=== PATIENT | male | born 1960 | race Caucasian/White ===

== ENCOUNTER 2020-03-09 23:07 | Inpatient (IN) | payer BC, SELFPAY ==
[~2020-03-09] VITALS: Ht 180.3 cm; Wt 90.3 kg
[2020-03-09 23:07] VITALS: BP_SYST 110
--- NOTE | 2020-03-09 23:50 | NUR ---
Patient to ER bed 6 to gown for evaluation. Side rails up.
--- NOTE | 2020-03-09 23:50 | NUR ---
Patient BIB EMS. C/O Generalized weakness and fever x today. Per family reported, patient discharged from [facility] yesterday. Dx Septic Shock, Hx HIV, HTN, Nose infection A/O,X4, nose wound , right forearm stitches -biopsy, Oxygen sat 87 %RA, BP 109/62, nose pain, pain rate 8/10, place patient on environmental monitoring specialist.
[2020-03-10] VITALS (21 sets, daily range): BP systolic 94–125
--- NOTE | 2020-03-10 00:24 | NUR ---
ER Dr. Gilbert at bedside examining patient.
[2020-03-10] MEDS ORDERED: LIP20 PO (00:25)
--- NOTE | 2020-03-10 00:57 | NUR ---
Blood for labwork drawn from feather renovator. Patient tolerated well.
[2020-03-10 01:05] LABS: BASOPHILS % (AUTO) 0.2 % (0.0-2.0); EOSINOPHILS % (AUTO) 0.3 % (0.0-4.0); LYMPHOCYTES # (AUTO) 0.5 K/uL (1.0-5.5); RED BLOOD CELL COUNT(AUTO) 2.53 MIL/uL (4.2-6.2)
[2020-03-10 01:10] LABS: CALCIUM 8.4 mg/dL (8.4-11.0); CREATININE 1.38 mg/dL (0.55-1.30); POTASSIUM 4.2 mmol/L (3.5-5.1)
[2020-03-10 01:11] LABS: HEMOGLOBIN 7.2 g/dL (14.0-18.0); LYMPHOCYTES % (AUTO) 9.8 % (20.5-51.5); MEAN CORPUSCULAR HEMOGLOBIN 28 pg (27-31); MEAN CORPUSCULAR HGB CONC 34 % (32-36); MEAN CORPUSCULAR VOLUME 84 fL (79.0-98.0); MONOCYTES # (AUTO) 0.5 K/uL (0.0-1.0); MONOCYTES % (AUTO) 10.7 % (1.7-9.3); RED CELL DISTRIBUTION WIDTH 15.2 % (9.0-15.0); WHITE BLOOD COUNT (AUTO) 5.1 K/uL (4.8-10.8)
[2020-03-10 01:14] LABS: ALBUMIN 1.2 g/dL (3.4-4.8); INR 1.5 (0.80-1.20); PROTHROMBIN TIME 14.8 SECS (9.5-12.5); TOTAL BILIRUBIN 1.1 mg/dL (0.0-1.0)
[2020-03-10 01:25] LABS: HEMATOCRIT 21.2 % (36-54); PLATELET COUNT (AUTO) 76 K/uL (130-430)
[2020-03-10 01:38] LABS: C-REACTIVE PROTEIN QUANT 19.8 mg/dL (0-0.5)
[2020-03-10] MEDS ORDERED: PRO40 PO (01:43)
[2020-03-10] MEDS ORDERED: DIF100 PO (01:43)
[2020-03-10] MEDS ORDERED: METO200T49 PO (01:44)
[2020-03-10] MEDS ORDERED: cefTRIAXone 1 GM IVPB PREMIX 50 ML IV ONE (01:45)
[2020-03-10] MEDS ORDERED: NACL 0.9% 1,000 ML IV ONE (01:45)
[2020-03-10] MEDS ORDERED: FAMC500T18 PO (01:47)
[2020-03-10] MEDS ORDERED: AMOX250C PO (01:48)
[2020-03-10] MEDS ORDERED: MUPI1OIN5 TP (01:50)
--- NOTE | 2020-03-10 01:52 | NUR ---
Medication reconciliation completed with information provided by family. Any prior medication reconciliation on file was reviewed and corrected.
--- NOTE | 2020-03-10 02:02 | NUR ---
Swabbed Covid-19 as protocol and sent to lab.
[2020-03-10] MEDS ORDERED: AZITHROMYCIN 500 MG/VIAL (ZITHROMAX) IV ONE ×2 (02:16→04:20)
[2020-03-10] MEDS ORDERED: NOREPINEPHRINE BITARTRATE 4 MG in NS 246 ML IV PRN (02:30)
[2020-03-10] MEDS ORDERED: CLINDAMYCIN 900 mg/50mL D5W 50 ML IV ONE (02:30)
[2020-03-10] MEDS ORDERED: NOREPINEPHRINE 4 MG/4 ML VIAL IV ONE (02:38)
--- NOTE | 2020-03-10 02:45 | NUR ---
Spoke with patient and informed - patient will stay in hospital. Patient states " I will call my family myself, I want to keep my information to be private."
--- NOTE | 2020-03-10 02:57 | NUR ---
# 22 gauge angiocath placed to right hand. Use of asceptic technique. Opsite placed over site. Blood return noted. Blood for lab drawn from site. Flushed with 10 cc of normal saline. No evidence of infiltration noted. Patient tolerated well.
[2020-03-10] MEDS: AZITHROMYCIN 500 MG in NS 250 ML IV ONE ×2 (03:09→05:15)
--- NOTE | 2020-03-10 03:16 | NUR ---
Transfer to ICU via ACLS protocol. Licensed nurse present. IV present no signs or symptoms of infiltration.
--- NOTE | 2020-03-10 03:16 | NUR ---
Patient will be admitted to care of Dr. Hawkins. Admitted to ICU unit. Will go to room 8. Belongings list completed. Complete and up to date summary report printed. SBAR report to be given at bedside with opportunity for questions.
--- NOTE | 2020-03-10 03:21 | NUR ---
Note alex in ED - 03/10/20 at 0417 by [email or web address] Transfer to ICU via ACLS protocol. Licensed nurse present. IV present no signs or symptoms of infiltration.
--- NOTE | 2020-03-10 03:30 | NUR ---
ADMISSION NOTE Received patient from ER via gurney. Patient admitted with diagnosis of sepsis. Patient is awake, alert, oriented X 4. Patient oriented to hospital room, call light, toileting, pain management and safety-teach back done. Personal belongings checked and Belongings List documented. Call light within reach.
[2020-03-10] MEDS ORDERED: PIPERACILLIN/TAZO 3.375/DEX-IS 50 ML IV ONE (04:15)
[2020-03-10] MEDS: AZITHROMYCIN 500 MG in NS 250 ML IV SCH (04:30)
[2020-03-10] MEDS ORDERED: PIPERACILLIN/TAZO 4.5GM/DEX-IS 100 ML IV ONE ×2 (05:00→11:00)
[2020-03-10] MEDS: NACL 0.9% 1,000 ML IV SCH ×3 (05:21→20:29)
--- NOTE | 2020-03-10 06:09 | NUR ---
CONSULT PAGED DR. MENDOZA FOR PATIENT SHIELA TARUN FOR SEPSIS. DOCTOR CALLED BACK AND NURSE GAVE CONSULT INFORMATION. PAGED DOCTOR AT [phone]. DOCTOR CARINA PUT IN THE CONSULT.
--- NOTE | 2020-03-10 06:18 | NUR ---
CONSULT REASON FOR CONSULT: SEPSIS PERSON I SPOKE WITH: SOCORRO CONSULTING PHYSICIAN: DR. SIMMONS [phone] CONSULTING SPECIALTY: INFECTION DISEASE ORDERING PHYSICIAN: DR. LIM
--- NOTE | 2020-03-10 07:27 | NUR ---
Closing Note: Endorsed SBAR report to oncoming RN for continuity of care.
[2020-03-10] MEDS ORDERED: FAMCICLOVIR 250 MG PO SCH (09:00)
[2020-03-10] MEDS: PANTOPRAZOLE SODIUM 40 MG/VIAL (PROTONIX) IVP SCH (09:27)
[2020-03-10] MEDS: ATORVASTATIN 20 MG TABLET PO SCH (09:27)
[2020-03-10] MEDS: FLUCONAZOLE 100 MG TABLET (DIFLUCAN) PO SCH (09:27)
--- NOTE | 2020-03-10 09:47 | NUR ---
Nutrition Update Marcellus scale 14 noted. Pt admitted for sepsis. Diet: NPO BMI: 24.3 kg/m2 RD to follow per nutrition care standards.
[2020-03-10 11:03] LABS: BASOPHILS % (AUTO) 0.3 % (0.0-2.0); EOSINOPHILS % (AUTO) 0.3 % (0.0-4.0); HEMATOCRIT 26.2 % (36-54); HEMOGLOBIN 8.6 g/dL (14.0-18.0); LYMPHOCYTES # (AUTO) 0.5 K/uL (1.0-5.5); LYMPHOCYTES % (AUTO) 11.7 % (20.5-51.5); MEAN CORPUSCULAR HEMOGLOBIN 28 pg (27-31); MEAN CORPUSCULAR HGB CONC 33 % (32-36); MEAN CORPUSCULAR VOLUME 84 fL (79.0-98.0); MONOCYTES # (AUTO) 0.4 K/uL (0.0-1.0); MONOCYTES % (AUTO) 9.6 % (1.7-9.3); NEUTROPHILS # (AUTO) 3.5 K/uL (1.8-7.7); NEUTROPHILS % (AUTO) 78.1 % (40.0-70.0); PLATELET COUNT (AUTO) 81 K/uL (130-430); RED BLOOD CELL COUNT(AUTO) 3.12 MIL/uL (4.2-6.2); RED CELL DISTRIBUTION WIDTH 15.7 % (9.0-15.0); WHITE BLOOD COUNT (AUTO) 4.5 K/uL (4.8-10.8)
[2020-03-10 11:15] LABS: INR 1.7 (0.80-1.20)
[2020-03-10 11:35] LABS: CREATININE 1.2 mg/dL (0.55-1.30); POTASSIUM 4.3 mmol/L (3.5-5.1); TOTAL BILIRUBIN 1.5 mg/dL (0.0-1.0)
[2020-03-10 11:36] LABS: ALBUMIN 1.4 g/dL (3.4-4.8)
[2020-03-10 11:39] LABS: C-REACTIVE PROTEIN QUANT 28.8 mg/dL (0-0.5)
--- NOTE | 2020-03-10 16:32 | NUR ---
Shira Terry for orders, spoke with exchange. Addendum: 03/10/20 at 1640 by Prema Riddle RN Dr. Ross tatum, spoke with exchange.
--- NOTE | 2020-03-10 17:21 | NUR ---
pt has paradoxical cough, requests cough medicine and food, gave pt juice and water which pt swallowed easily, pt also states is HIV positive and needs to get meds, 2 mds made aware of this, no orders for cough or HIV meds/pt o2 sat 1005 ON 4L, DECREASED HIS fio2 to 2 liters and bp stable rani turned off levo at 8am/pt follows commands but very weak, admitted last night but improving, spoke to pt daughter and also let her know this, daughter says pt not compliant with hiv txmts but was to see MD in a.m. wednesday to get results of testing done on his facial lesions/pt otherwise in zero distress with no complaints/mds told and paged re transferring pt to floor but no orders as of yet//mw
--- NOTE | 2020-03-10 19:15 | NUR ---
Opening Note Received patient from AM nurse using SBAR approach.
[2020-03-10] MEDS ORDERED: PIPERACILLIN/TAZO 4.5GM/DEX-IS 100 ML IV SCH (19:30)
--- NOTE | 2020-03-10 20:40 | NUR ---
called Dr. Montenegro called. New orders received.
[2020-03-10] MEDS ORDERED: PIPERACILLIN/TAZOBACTAM 4.5 GM/VIAL (ZOSYN) IV ONE (21:36)
[2020-03-10] MEDS: PIPERACILLIN/TAZO 4.5GM/DEX-IS 100 ML IV SCH (21:54)
--- NOTE | 2020-03-10 22:00 | NUR ---
Linens changed Asked to clean patient but he refused. Patient stated that he wanted to sleep and said to clean him later. I was able to change his chucks and make a new bed roll for him and put on a new gown. Patient is sleeping comfortably in bed. No signs or symptoms of distress noted. Will continue to monitor the patient.
[2020-03-11] VITALS (25 sets, daily range): BP systolic 91–131
[2020-03-11] MEDS: NACL 0.9% 1,000 ML IV SCH ×2 (00:35→11:59)
[2020-03-11] MEDS: AZITHROMYCIN 500 MG in NS 250 ML IV SCH (04:16)
--- NOTE | 2020-03-11 05:08 | NUR ---
Patient refused to be cleaned Asked to clean patient but patient stated that he does not want to be cleaned. Offered to change patient's gowns and linens but he said no thank you. Patient stated that he will ask for help when he wants to be changed/cleaned. Will continue to monitor patient.
[2020-03-11] MEDS: PIPERACILLIN/TAZO 4.5GM/DEX-IS 100 ML IV SCH ×3 (05:43→21:08)
--- NOTE | 2020-03-11 06:10 | NUR ---
Refused to be changed Went in the room to do rounds on patient. Checked patient's chucks and they are stained with urine. Asked patient if I can change out the chucks and he refused. I asked if i could change patient's gown and he refused. Patient stated he wants to sleep. Will continue to monitor.
[2020-03-11 07:07] LABS: ALBUMIN 1.1 g/dL (3.4-4.8); CALCIUM 8.4 mg/dL (8.4-11.0); CREATININE 1.1 mg/dL (0.55-1.30); POTASSIUM 4.2 mmol/L (3.5-5.1); TOTAL BILIRUBIN 1.3 mg/dL (0.0-1.0)
--- NOTE | 2020-03-11 07:16 | NUR ---
Closing Note Endorsed report to AM nurse using SBAR approach.
--- NOTE | 2020-03-11 07:30 | NUR ---
Recevied report to assume care. Pt incontinent of stool and urine everywhere. Kelsie care done and linen changed. Pt refuses to put i-watch and 2 cell phones at bedside to the safe. He wants to keep them with him. Requests watch to be on his wrist. Sr on monitor. VSS. 02 2L NC in use with sats 91%. Will continue to monitor pt. Denies pain or SOB. Does complain about wanting something to eat and drink. Informed Dr. Graham.
[2020-03-11 07:34] LABS: BASOPHILS % (AUTO) 0.4 % (0.0-2.0); EOSINOPHILS % (AUTO) 0.2 % (0.0-4.0); HEMOGLOBIN 7.2 g/dL (14.0-18.0); LYMPHOCYTES # (AUTO) 0.4 K/uL (1.0-5.5); LYMPHOCYTES % (AUTO) 10.6 % (20.5-51.5); MEAN CORPUSCULAR HEMOGLOBIN 28 pg (27-31); MEAN CORPUSCULAR HGB CONC 33 % (32-36); MEAN CORPUSCULAR VOLUME 83 fL (79.0-98.0); MONOCYTES # (AUTO) 0.4 K/uL (0.0-1.0); MONOCYTES % (AUTO) 10.3 % (1.7-9.3); NEUTROPHILS # (AUTO) 3.1 K/uL (1.8-7.7); PLATELET COUNT (AUTO) 68 K/uL (130-430); RED BLOOD CELL COUNT(AUTO) 2.59 MIL/uL (4.2-6.2); RED CELL DISTRIBUTION WIDTH 15.2 % (9.0-15.0)
--- NOTE | 2020-03-11 07:47 | NUR ---
Dr. Graham in to see pt. Informed about pts cough and she will leave medicine for it. Informed that pt has not received any fluid boluses for sepsis diagnosis. No orders given for fluids.
[2020-03-11 08:20] LABS: HEMATOCRIT 21.5 % (36-54)
--- NOTE | 2020-03-11 08:30 | NUR ---
Dr Anaya in to see pt. Orders left.
--- NOTE | 2020-03-11 10:00 | NUR ---
Pt took oral meds with water without problems swallowing.
--- NOTE | 2020-03-11 10:24 | NUR ---
IVF NS wide open started per Dr. Anaya.
[2020-03-11] MEDS: FLUCONAZOLE 100 MG TABLET (DIFLUCAN) PO SCH (10:30)
[2020-03-11 11:08] LABS: NEUTROPHILS % (AUTO) 78.5 % (40.0-70.0)
[2020-03-11] MEDS: guaiFENesin 200 MG/CODEINE 20 MG/ 10 ML UDC PO PRN (11:15)
--- NOTE | 2020-03-11 11:32 | NUR ---
SS NOTES: HEAD TENNIS COACH attempted to phone patient's cell; no answer. HEAD TENNIS COACH phoned spouse, Corin @[phone]. Pt is a 59 y/o man who came in via ED for fever and low blood pressure. Per , patient had a pimple starting in October and has been to different MD's and was prescribed with different meds. stated, pt is very private and was not really aware of the severity of his condition. stated, pt is independent with his ADL's and no DME needed. No history of mental health and substance use. also stated, patient prefers not to give and their daughter Shoshana information about his care in the hospital, and they respect that. also stated, information are only to be released to pt's son, Pablo @ [phone]. believes that patient does not have an advanced directive. also stated, that if patient was to be discharged home and requires care, she will not be able to take care of him because she is having a heart surgery tomorrow 03/12, but no preference on SNF or HHS if it's indicated. SS will remain available.
[2020-03-11] MEDS: PANTOPRAZOLE SODIUM 40 MG/VIAL (PROTONIX) IVP SCH (11:59)
[2020-03-11] MEDS: ATORVASTATIN 20 MG TABLET PO SCH (11:59)
--- NOTE | 2020-03-11 12:18 | NUR ---
Dr. Casanova in to see pt. Orders left. Orders for bactroban to be continued and to repeat lactic acid after fluid bolus completed.
--- NOTE | 2020-03-11 13:29 | NUR ---
CONSULT SURGERY CONSULTING MD: DR. MANNING DIALED: [phone] SPOKE TO: DR. MANNING ORDERED BY: DR. JACOBSON
--- NOTE | 2020-03-11 13:31 | NUR ---
CONSULT ONCOLOGY CONSULTING MD: DR. DENTON SPOKE TO: JAMES DIALED: [phone] ORDERED BY: DR. JACOBSON
--- NOTE | 2020-03-11 15:46 | NUR ---
Surgical Consult Spoke with Dr. Rutledge on the phone and question answered. He will be in to do biopsy in 20 minutes. Supply list given.
[2020-03-11] MEDS ORDERED: LIDOCAINE 1% 10 MG/ML, 20 ML MDV INJ ONE (16:00)
--- NOTE | 2020-03-11 16:40 | NUR ---
Dr Rutledge in to see pt. Biopsy done from right leg and sent to the lab. Dressing applied by with sutures in place.
[2020-03-11] MEDS: NS IV SCH ×2 (17:00→22:32)
[2020-03-11] MEDS: ACYCLOVIR IV SCH ×2 (17:00→22:32)
--- NOTE | 2020-03-11 18:00 | NUR ---
Sleeping after biposy taken. VSS. SR on monitor. Will continue to monitor.
--- NOTE | 2020-03-11 19:30 | NUR ---
Report given to oncoming staff to assume care.
[2020-03-11] MEDS: MUPIROCIN 2% TOPICAL OINTMENT 22 GM NS SCH (21:07)
[2020-03-12] VITALS (14 sets, daily range): BP systolic 98–129
[2020-03-12] MEDS: AZITHROMYCIN 500 MG in NS 250 ML IV SCH (04:29)
[2020-03-12] MEDS: PIPERACILLIN/TAZO 4.5GM/DEX-IS 100 ML IV SCH ×3 (05:35→21:12)
[2020-03-12] MEDS: NS IV SCH ×3 (05:35→22:32)
[2020-03-12] MEDS: ACYCLOVIR IV SCH ×3 (05:35→22:32)
--- NOTE | 2020-03-12 06:00 | NUR ---
SLEPT ON AND OFF.DENIES ANY PAIN.WAS INCONTINENT OF URINE X2 THIS SHIFT.WAS ABLE TO USE URINAL , EARLIER IN THE SHIFT. PARTIAL BATH DONE 2X THIS SHIFT WITH LINENS CHANGED.NOTED TO GET DISORIENTED AT TIMES, TALKING NONSENSE AT TIMES.TOLERATING O2 AT 2L/NC.
--- NOTE | 2020-03-12 07:15 | NUR ---
Report received from DIPESH Boles for continuation of care. Patient is resting in bed. He is complaining about his "hotel" experience and states he is unhappy a joke was played on him. He states I should know what the joke is and that he does not want to be here. He wishes to speak with the "hotel" barn and property manager. I oriented him to his location. kitchen hand notified.
[2020-03-12] MEDS: FLUCONAZOLE 100 MG TABLET (DIFLUCAN) PO SCH (08:41)
[2020-03-12] MEDS: ATORVASTATIN 20 MG TABLET PO SCH (08:41)
[2020-03-12] MEDS: PANTOPRAZOLE SODIUM 40 MG/VIAL (PROTONIX) IVP SCH (08:41)
[2020-03-12] MEDS: MUPIROCIN 2% TOPICAL OINTMENT 22 GM NS SCH ×2 (08:41→20:46)
--- NOTE | 2020-03-12 08:45 | NUR ---
Breakfast tray provided.
--- NOTE | 2020-03-12 11:00 | NUR ---
Patient to be transferred to telemetry. No beds available at this time.
--- NOTE | 2020-03-12 12:15 | NUR ---
Patient removed gown, SCDs, and all monitoring devices.
--- NOTE | 2020-03-12 12:15 | NUR ---
Patient removed his gown and all monitoring devices.
--- NOTE | 2020-03-12 12:30 | NUR ---
Lunch tray provided.
[2020-03-12] MEDS: NACL 0.9% 1,000 ML IV SCH ×3 (12:54→23:19)
--- NOTE | 2020-03-12 13:28 | NUR ---
Dietitian Recommendations *Recommend: adding ONS Ensure Enlive TID and Vernon BID. ONS and modular will provide additional 1210 kcal, 65gm protein daily. *Recommend MVI. *Continue Cardiac diet per MD orders. Please see Nutritional Assessment for details. BLAKE ABRAHAM
--- NOTE | 2020-03-12 15:45 | NUR ---
PT TRANSFERRED Report given to DIPESH Carrillo in telemetry. Patient transferred to [facility] via ACLS protocol, 2 RNs present. PICC line patent.
--- NOTE | 2020-03-12 16:38 | NUR ---
ADMISSION TO [facility] The patient, TARUN BENJAMIN, 59 y/o, M admitted by MARIA TERESA JACOBSON MD, was given written information regarding hospital policies, unit procedures and contact persons. Received report from ICU for continuity of care.
--- NOTE | 2020-03-12 16:39 | NUR ---
Opening Notes Received patient from ICU, stable at this time. No resp distress noted. Breathing is even and unlabored. Patient is noted with continuous oxygen @ 2 LPM via NC, tolerated well. Saturating 94%-96%. Patient denies any pain at this time. IV site on left FA, 22 gauge, intact but not in use. PICC line on TANIA, dressing noted with some blood, 2 lumens, flushing well, blood return noted. NS @ 30 ml/hr, infusing well. Patient was noted with multiple skin issues: wound on anterior nose, redness on coccyx area, bruising noted on right 4th toe, lesions on right arm. Patient denies any NVD at this time. Patient was educated on proper use of the call light-teach back successful. Nurse assisted patient to use the urinal at bedside. Patient is also noted with delusions. Patient believes he is staying in a hotel. Patient also believes the last nurse who helped him was his ex . Patient was reoriented. All needs met at this time. Safety and fall precautions in place. Call light within reach. Bed in lowest position, alarm on, locked. Will continue to monitor.
--- NOTE | 2020-03-12 19:14 | NUR ---
Closing Notes Patient is awake, alert and oriented x3. Patient is noted with intermittent confusion and delusions/hallucinations. NO resp distress noted at this time. Breathing is even and unlabored. Patient was repositioned with pillows, left clean and dry. Patient is able to help with turning over in bed. Patient denies any pain at this time. All needs met at this time. Call light within reach. Bed in lowest position, alarm on, locked. Will continue to monitor.
--- NOTE | 2020-03-12 19:20 | NUR ---
OPENING NOTE PATIENT AWAKE AND WATCHING TV. PATIENT AOX3. NO SIGNS OF RESPIRATORY DISTRESS NOTED. DENIES PAIN AND DISCOMFORT. ON2L OF OXYGEN VIA NASAL CANULA, O2 SATURATION OF 95%. IVF INFUSING WELL, PATENCY NOTED ON THE RIGHT UPPER ARM PICC LINE, NO INFILTRATION NOTED. COUGHING IS NOTED. AND PATIENT VERBALIZED THE NEED OF COUGH MEDICATION LATER. WILL ADMINISTER. SCD'S OPERATING WELL. BED LOCKED AND IN LOWEST POSITION. BED ALARM ON. CALL LIGHT WITHIN REACH, PATIENT WAS EDUCATED TO USE CALL LIGHT WHEN ASSISTANCE IS NEEDED, PATIENT VERBALIZED UNDERSTANDING. SAFETY PRECAUTIONS IN PLACE. WILL CONTINUE TO MONITOR PATIENT.
[2020-03-12] MEDS: guaiFENesin 200 MG/CODEINE 20 MG/ 10 ML UDC PO PRN (21:31)
--- NOTE | 2020-03-12 21:31 | NUR ---
MED PASS/ IV ANTIBIOTICS/ REFUSED SKIN ASSESSMENT DUE IV ANTIBIOTIC MEDICATIONS WAS HUNG AT THIS TIME. AND PRN MEDICATION FOR COUGH WAS GIVEN WELL. PATIENT WAS EDUCATED ON MEDICATION AT WAS GIVEN FOR ITS PURPOSE, SIDE EFFECT AND BENEFITS. PATIENT ABLE TO VERBALIZE UNDERSTANDING. PATIENT WAS ASK IF RN CAN DO SKIN ASSESSMENT IN THE BACK AND LEGS, PATIENT REFUSED AT THIS TIME. PATIENT WAS EDUCATED THE PURPOSE AND BENEFITS OF THE ASSESSMENT, PATIENT STILL REFUSED. WILL CONTINUE TO ENCOURAGE PATIENT. SAFETY PRECAUTIONS IN PLACE. NEEDS ATTENDED. WILL CONTINUE TO MONITOR PATIENT.
--- NOTE | 2020-03-12 22:00 | NUR ---
SPOKE WITH MD DR. JACOBSON MADE AWARE OF PATIENTS ELEVATED HEART RATE. MD GAVE AN ORDER TO CALL DR. KELLER. WILL PUT AN ORDER FOR CONSULT. WILL FOLLOW UP TO CALL DR. KELLER
--- NOTE | 2020-03-12 23:19 | NUR ---
NEW IVF HUNG/ VITAL SIGNS PATIENT AWAKE AT THIS TIME. NO SIGNS OF RESPIRATORY DISTRESS AND DISCOMFORT NOTED. BREATHING IS EVEN AND UNLABORED. ON 2L OF OXYGEN VIA NASAL CANULA. O2 SATURATION OF 95%. VITAL SIGNS TAKEN AND RECORDED. IVF INFUSING WELL. CALL LIGHT WITHIN IN REACH. SAFETY PRECAUTIONS IN PLACE. WILL CONTINUE TO MONITOR PATIENT.
--- NOTE | 2020-03-12 23:32 | NUR ---
CONSULTATION PAGED/CALLED Reason for Consultation: ELEVATED HEART RATE Person Who was Notified: SINDHU Consulting Physician: KRISHNA Prototype Machine Operator Specialty: Ordering Physician: INDIRA
[2020-03-13] VITALS: BP_SYST 122
--- NOTE | 2020-03-13 02:27 | NUR ---
RN ROUNDS PATIENT AWAKE AND WATCHING TV, NO SIGNS OF RESPIRATORY DISTRESS AND DISCOMFORT NOTED. BREATHING EVEN AND UNLABORED. ON 2L OF OXYGEN VIA NASAL CANULA, O2 SATURATION OF 95%. DENIES PAIN AND DISCOMFORT AT THIS TIME. CALL LIGHT WITHIN REACH. NEEDS ATTENDED. STILL REFUSED FOR SKIN ASSESSMENT IN THE BACK AND LOWER EXTREMITIES. WILL CONTINUE TO ENCOURAGE THROUGHOUT THE SHIFT. SAFETY PRECAUTIONS IN PLACE. WILL CONTINUE TO MONITOR PATIENT
--- NOTE | 2020-03-13 04:00 | NUR ---
RN ROUNDS PATIENT ASLEEP AT THIS TIME. NO SIGNS OF RESPIRATORY DISTRESS AND DISCOMFORT NOTED. BREATHING EVEN AND UNLABORED. ON 2L OF OXYGEN VIA NASAL CANULA, O2 SATURATION OF 95%. DENIES PAIN AND DISCOMFORT AT THIS TIME. CALL LIGHT WITHIN REACH. SAFETY PRECAUTIONS IN PLACE. WILL CONTINUE TO MONITOR PATIENT
[2020-03-13] MEDS: AZITHROMYCIN 500 MG in NS 250 ML IV SCH (04:40)
[2020-03-13] MEDS: NS IV SCH (06:00)
[2020-03-13] MEDS: ACYCLOVIR IV SCH (06:00)
--- NOTE | 2020-03-13 06:00 | NUR ---
PICC LINE DRESSING/SKIN ASSESSMENT PICC LINE DRESSING WAS CHANGED AT THIS TIME. PATIENT COOPERATED AT THIS TIME. SKIN ASSESSMENT DONE WELL. PICTURES WAS TAKEN. NEEDS ATTENDED. NO SIGNS OF RESPIRATORY DISTRESS AND DISCOMFORT NOTED. WILL CONTINUE TO MONITOR PATIENT
[2020-03-13] MEDS: PIPERACILLIN/TAZO 4.5GM/DEX-IS 100 ML IV SCH (06:02)
--- NOTE | 2020-03-13 07:10 | NUR ---
CLOSING NOTE/ ERICKA CARE PATIENT ASLEEP AT THIS TIME. NO SIGNS OF RESPIRATORY DISTRESS AND DISCOMFORT NOTED. BREATHING EVEN AND UNLABORED. ON 2L OF OXYGEN VIA NASAL CANULA, 02 SATURATION OF 94%. IVF INFUSING WELL, PATENCY NOTED. ERICKA CARE DONE, PATIENT TOLERATED WELL. CALL LIGHT WITHIN REACH. SAFETY PRECAUTIONS IN PLACE. BED ALARM ON. BED LOCKED AND IN LOWEST POSITION. ISOLATION, FALL AND ASPIRATION PRECAUTION MAINTAINED. ALL NEEDS MET THROUGHOUT THE SHIFT. WILL CONTINUE TO MONITOR UNTIL ENDORSE TO ONCOMING SHIFT NURSE FOR CONTINUITY OF CARE.
--- NOTE | 2020-03-13 07:30 | NUR ---
Opening Notes Patient is awake, alert and oriented x3. Patient is intermittently confused and noted with delusions. No resp distress noted. Breathing is even and unlabored. Patient remains on continuous oxygen @ 3 LPM, tolerated well. Patient denies any pain at this time. Patient c/o cough. Dry cough with no sputum at this time. PICC line noted on TANIA, 2 lumens, dressing is clean and dry. Flushing well, blood return noted. NS @ 125 ml/hr, infusing well. Patient was also educated that his COVID 19 test was NEGATIVE. Will page Dr. Casanova to DC isolation precautions. Patient repositioned with pillows, left clean and dry. SCDs in place. Bed in lowest position, alarm on, locked. Will continue to monitor.
[2020-03-13 08:00] VITALS: BP_SYST 110
[2020-03-13] MEDS: guaiFENesin 200 MG/CODEINE 20 MG/ 10 ML UDC PO PRN (08:00)
--- NOTE | 2020-03-13 08:00 | NUR ---
Medication Pass/Cough Medicine All due medications rendered. Patient swallowed medication without difficulty. Patient was also given Robitussin cough medicine, tolerated well. Will continue to monitor.
[2020-03-13] MEDS: PANTOPRAZOLE SODIUM 40 MG/VIAL (PROTONIX) IVP SCH (09:26)
[2020-03-13] MEDS: FLUCONAZOLE 100 MG TABLET (DIFLUCAN) PO SCH (09:27)
[2020-03-13] MEDS: MUPIROCIN 2% TOPICAL OINTMENT 22 GM NS SCH ×2 (09:27→21:00)
[2020-03-13] MEDS: ATORVASTATIN 20 MG TABLET PO SCH (09:27)
--- NOTE | 2020-03-13 09:30 | NUR ---
Transfer to Telemetry Obtained new orders to transfer patient to Telemetry. Patient will go to room 102A. Report will be given to DIPESH Toledo.
--- NOTE | 2020-03-13 09:43 | NUR ---
Report Given to DIPESH Toledo for continuity of care.
--- NOTE | 2020-03-13 09:48 | NUR ---
Opening Note received SBAR report from endorsing RN, patient resting in bed, respirations even and unlabored on 3L nasal cannula, no acute distress noted, patient denies any pain, educated patient on use of call light and asked to call for assistance, patient verbalized understanding, call light in reach, bed in low and locked position, bed alarm on.
[2020-03-13] MEDS ORDERED: METOPROLOL SUCCINATE 25 MG TAB.SR.24H (TOPROL XL) PO ONE (10:15)
--- NOTE | 2020-03-13 11:30 | NUR ---
Physician Rounds Dr. Mcmahan bedside examining patient. Addendum: 03/13/20 at 1611 by Paris Pisano RN spoke with radiology, they will not be able to complete MRI today, informed Dr. Mcmahan, per Dr. Martir andrews to complete MRI tomorrow.
[2020-03-13 12:00] VITALS: BP_SYST 120
--- NOTE | 2020-03-13 12:08 | NUR ---
Called Family called patients family, message left for Raysa regarding consent for MRI with contrast, awaiting call back.
--- NOTE | 2020-03-13 13:30 | NUR ---
Incontinent patient incontinent of urine, patient cleaned and assisted to reposition, patient tolerated well.
[2020-03-13] MEDS: NACL 0.9% 1,000 ML IV SCH ×2 (13:42→22:40)
--- NOTE | 2020-03-13 14:30 | NUR ---
WOUND EVALUATION: Late note for 03/13/2020 at 1430 secondary to patient care. Wound Consult received from Dr. Hawkins. Thank you Dr. Hawkins for the consult. Patient received in a [place] Bed with an IsoFlex JOSI mattress, awake, alert, confused. Patient is unable to turn in bed independently. Marcellus Score is a 15. Past Medical History: HIV, Hypertension, Hyperlipidemia, history of smoking. Recent Labs: WBC 4.0, RBC 2.59, hemoglobin 7.2, hematocrit 21.5, chloride 109, BUN 34, creatinine 1.10, GFR 72, alkaline phosphatase 470, albumin 1.1, serum total protein 3.8. PT 17.0, INR 1.7, PTT 45.6. Microbiology: Blood culture results x2 in progress. MRSA screen results negative. Intrinsic factors that delay wound healing: HIV, severe hypoalbuminemia. Extrinsic factors that delay wound healing: Decreased mobility. Wound Assessment: 1. Anterior Nose/Right Cheek: Wound (possibly cancerous), status post recent biopsy, present on admission. Wound bed has 55% yellow tissue, 40% black eschar, 5% pink tissue. No odor, scant yellow drainage. Wound measures 12.0 cm x 9.0 cm. Recommend: Cleanse wound with normal saline. Apply moisture barrier cream to monique-wound. Apply Venelex ointment to wound bed. Cover with non-adhesive foam dressing. Pad right cheek area with gauze so dressing makes contact with cheek. Wrap with miguelangel wrap and secure with tape. Perform wound care daily, and as needed for dressing soiling or dislodgement. 2. Gluteal Cleft: Intertrigo with MASD, present on admission. Wound bed has 100% pink tissue. No odor, no drainage. Periwound intact. Wound measures 2.9 cm x 1.0 cm. Recommend: Cleanse wound with normal saline. Apply moisture barrier cream to monique-wound. Apply Venelex ointment to wound bed. Cover with foam dressing. Perform wound care daily, and as needed for dressing soiling or dislodgement. 3. Left Cuellar: Large area of purple discoloration/ecchymosis, present on admission. No odor, no drainage. 4. Right Cuellar: Large area of purple discoloration/ecchymosis, present on admission. No odor, no drainage. 5. 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 No odor, no drainage. Recommend: No dressings needed. Continue to monitor sites every shift. Contact wound care nurse if sites open or drain. 6. Left Fourth Toe: Discoloration (85% dark purple, 15% dark discolor), present on admission. Normal skin temperature. No odor, no drainage. 7. Right Fourth Toe: Discoloration (85% dark purple, 15% dark discolor), present on admission. Normal skin temperature. No odor, no drainage. Recommend: No dressings needed. Continue to monitor sites every shift. Also recommend: Reposition patient every 2 hours with pillow support and off-load pressure areas with pillows for pressure re-distribution. Offload, elevate and float bilateral heels with pillows. Perform skin care and monitor skin integrity Q shift. Use moisture barrier cream on buttocks and other moisture susceptible areas QID and as needed for soiling. Addendum: 03/14/20 at 1219 by Navarro Huertas RN Addendum: Error. For site 1, use sure prep for periwound, not moisture barrier cream.
--- NOTE | 2020-03-13 14:30 | NUR ---
Wound Consult/PICC line dressing change Navarro LANDON at bedside for wound consultation, patient tolerated well, some blood noted around PICC line site to right upper arm, educated patient on purpose and procedure for PICC line dressing change, PICC line dressing change completed, sterile technique observed, patient tolerated well.
[2020-03-13 15:00] VITALS: BP_SYST 114
--- NOTE | 2020-03-13 16:41 | NUR ---
Incontinent patient incontinent of urine, patient cleaned and assisted to reposition, patient tolerated well.
--- NOTE | 2020-03-13 17:49 | NUR ---
Incontinent patient incontinent of urine, patient cleaned, foam dressing applied to buttocks, patient repositioned, tolerated well, no acute distress noted.
--- NOTE | 2020-03-13 19:12 | NUR ---
Closing Note bedside SBAR report given to receiving RN, patient resting in bed, respirations even and unlabored on 3L nasal cannula, no acute distress noted, educated patient on use of call light and asked to call for assistance, patient verbalized understanding, call light in reach, bed in low and locked position, bed alarm on, care endorsed to cage shift manager RN.
[2020-03-13 19:33] VITALS: BP_SYST 103
[2020-03-13 20:00] VITALS: BP_SYST 103
--- NOTE | 2020-03-13 21:38 | NUR ---
Bactroban not available. Pyxis shows medication dithered out. Cabinet boxes do not have medication for pt in them (checked by 3 RNs). Medication not at bedside (checked by 3 RNs). [facility] Med Room checked and medication not in drawers. [phone] called and will not be able to deliver tonight.
[2020-03-14 00:37] VITALS: BP_SYST 106
[2020-03-14 06:22] LABS: BASOPHILS % (AUTO) 1.1 % (0.0-2.0); EOSINOPHILS % (AUTO) 0.7 % (0.0-4.0); LYMPHOCYTES # (AUTO) 0.6 K/uL (1.0-5.5); LYMPHOCYTES % (AUTO) 24.8 % (20.5-51.5); MEAN CORPUSCULAR HEMOGLOBIN 27 pg (27-31); MEAN CORPUSCULAR HGB CONC 32 % (32-36); MEAN CORPUSCULAR VOLUME 85 fL (79.0-98.0); MONOCYTES # (AUTO) 0.2 K/uL (0.0-1.0); NEUTROPHILS # (AUTO) 1.5 K/uL (1.8-7.7); NEUTROPHILS % (AUTO) 64.4 % (40.0-70.0); RED BLOOD CELL COUNT(AUTO) 2.23 MIL/uL (4.2-6.2); RED CELL DISTRIBUTION WIDTH 15.8 % (9.0-15.0)
[2020-03-14] MEDS: NACL 0.9% 1,000 ML IV SCH ×3 (06:37→21:20)
[2020-03-14 06:59] LABS: HEMATOCRIT 18.8 % (36-54); HEMOGLOBIN 6.1 g/dL (14.0-18.0)
--- NOTE | 2020-03-14 07:25 | NUR ---
lab called w critical labs for Hgb = 6.1, Hct 18.8, Plt = 37. Dr. Hawkins notified and ordered 2 U PRBCs STAT. Orders entered, consent printed, and transfusion forms started. Will endorse to Day RN upon arrival.
[2020-03-14 07:45] LABS: WHITE BLOOD COUNT (AUTO) 2.4 K/uL (4.8-10.8)
[2020-03-14 07:46] LABS: PLATELET COUNT (AUTO) 37 K/uL (130-430)
[2020-03-14 08:04] LABS: CALCIUM 8.5 mg/dL (8.4-11.0); CREATININE 1.24 mg/dL (0.55-1.30); POTASSIUM 4.3 mmol/L (3.5-5.1); THYROID STIMULATING HORMONE 4.22 uIu/mL (0.36-3.74); TOTAL BILIRUBIN 1.3 mg/dL (0.0-1.0)
[2020-03-14] MEDS: MUPIROCIN 2% TOPICAL OINTMENT 22 GM NS SCH ×2 (09:00→21:00)
[2020-03-14 09:14] VITALS: BP_SYST 139
[2020-03-14] MEDS ORDERED: GADOBENATE DIMEGLUMINE 529 MG/ML, 15 ML VIAL IV ONE (09:36)
[2020-03-14] MEDS: ACYCLOVIR IV 500 MG in D5W 100 ML IV SCH (10:04)
[2020-03-14] MEDS: PANTOPRAZOLE SODIUM 40 MG/VIAL (PROTONIX) IVP SCH (10:06)
[2020-03-14] MEDS: FLUCONAZOLE 100 MG TABLET (DIFLUCAN) PO SCH (10:07)
[2020-03-14] MEDS: ATORVASTATIN 20 MG TABLET PO SCH (10:07)
[2020-03-14] MEDS: METOPROLOL SUCCINATE 25 MG TAB.SR.24H (TOPROL XL) PO SCH (10:07)
--- NOTE | 2020-03-14 11:02 | NUR ---
DAUGHTER ALISHA REQUEST MD TO DISCUSS TRANSFER. VERBALIZES APPROVAL TO LETTY Schroeder RN AND AIR CONTROL/[employer] WARFARE OFFICER FOR BLOOD TRANSFUSION. DISCUSSION REGARDING HOSPICE FOR PATIENT WITH ALISHA, NEEDS FURTHER EDUCATION. DEBBIE JACK RN
--- NOTE | 2020-03-14 12:20 | NUR ---
PATIENT DAUGHTER REQUEST TO SPEAK WITH . PAGE TO PROVIDER. DEBBIE JACK RN
[2020-03-14 12:24] VITALS: BP_SYST 103
[2020-03-14] MEDS ORDERED: BALSAM PERU/CASTOR OIL 60 GM OINT...G. TP ONE (13:30)
--- NOTE | 2020-03-14 15:31 | NUR ---
DC Planning: late entry: LVM to pt 's son/Pablo x2 re: transfer pt to [facility]. Later pt's dtr/Stacy called back saying Pablo is a tar man and is on duty. Both do not have POA signed but are the next of kin. The pt is off/on ALOC , unable to made decision for own care. I discussed the transfer process to [facility] per her request. Informed her that the pt is not on [facility] system yet. The pt will need to get the financial approval, need accepting md first. I will up date Stacy once receives more information from the transfer ctr. Stacy # [phone]. >> Faxing the referral package to Russel/transfer ctr at [facility] fax # [phone], tel [phone].
[2020-03-14 16:07] VITALS: BP_SYST 116
[2020-03-14 17:24] LABS: LACTATE DEHYDROGENASE 457 U/L (85-227); TRIGLYCERIDES 183 mg/dL (30-150)
--- NOTE | 2020-03-14 18:54 | NUR ---
Endorsement to night team registered nurse. Rico Edmonds RN
[2020-03-14 19:13] VITALS: BP_SYST 116
[2020-03-14 20:00] VITALS: BP_SYST 116
[2020-03-14 21:21] LABS: INR 1.4 (0.80-1.20); PROTHROMBIN TIME 14.1 SECS (9.5-12.5)
[2020-03-14 21:30] LABS: TOTAL IRON BIND. CAPACITY 77 ug/dL (250-450)
--- NOTE | 2020-03-14 22:39 | NUR ---
lab called : lab called and notified fibrinogen 116 , will call dr baca , primary nurse made aware .
--- NOTE | 2020-03-14 22:45 | NUR ---
PAGEYessy : NOTICED THAT PTS HR IS SUSTAINING ON THE 130- 140 , DR KRISHNA MARR , DR JACK PERCUSSION INSTRUMENT TUNER .
--- NOTE | 2020-03-14 22:52 | NUR ---
paged dr. Chang for lab results. Doctor spoke with the nurse.
--- NOTE | 2020-03-14 23:00 | NUR ---
Spoke w Dr Chang re pt's removal of his own PICC line, fibrinogen of 116, and current coag lab results. Dr. Chang ordered new labs in a.m.
[2020-03-14] MEDS: LORazepam 2 MG/ML VIAL IVP PRN (23:41)
[2020-03-15] VITALS (14 sets, daily range): BP systolic 78–179
--- NOTE | 2020-03-15 00:39 | NUR ---
approx 1 hr ago pt was given IVP ativan via new saline lock to RH. pt's HR maintaining 140s throughout last hour. Dr. Edmonds called (covering for )
--- NOTE | 2020-03-15 00:44 | NUR ---
Paged Dr. Miller (Dr. Edmonds court liaison). Spoke with Corin.
--- NOTE | 2020-03-15 02:00 | NUR ---
approx 1 hr ago pt given ivp ativan 1mg d/t restlessness r/i pt pulling out PICC line and pressure dressing. pt then showed sustained hr on monitor technician in 140s. Dr. Edmonds was then called and case reviewed with him. Material covered with Dr. Edmonds included: Diagnosis, Medical Hx, Current Antibiotic regimen, Lab results (including Hgb of 6.1 on 03/14/20 resulting in 2 U PRBCs transfused, Event (PICC line pulled out by pt and subsequent bleeding), Interventions (pressure dressing for bleeding control and ativan to control anxiety), Sustained sinus tachycardia (140s), Metoprolol received during day shift on 03/14/20, and Recent orders from Dr. Chang regarding the same PICC line incident. No new orders at this time from Dr. Edmonds.
[2020-03-15] MEDS: NACL 0.9% 1,000 ML IV SCH ×3 (05:53→20:07)
[2020-03-15 07:08] LABS: INR 1.7 (0.80-1.20); PROTHROMBIN TIME 16.6 SECS (9.5-12.5)
[2020-03-15 07:57] LABS: HEMATOCRIT 20.9 % (36-54)
--- NOTE | 2020-03-15 08:28 | NUR ---
PAGED PAGED BRII STEIN AT [phone] SPOKE WITH EXCHANGE.
--- NOTE | 2020-03-15 08:30 | NUR ---
[facility]: Tony Goode at transfer center: [facility] medical team and oncologist had spoken with lili Kumar about POC : not to transfer to [facility] at this time. The pt will need to treat the acute illness /HIV /septic first then to f/u with dr. Chang possible as out patient. Stacy/dtr concurs with the POC.-- Dr Hawkins made aware in bed huddle this am. -- DIPESH Giron made aware.
[2020-03-15] MEDS: ATORVASTATIN 20 MG TABLET PO SCH (09:00)
[2020-03-15] MEDS: PANTOPRAZOLE SODIUM 40 MG/VIAL (PROTONIX) IVP SCH (09:00)
[2020-03-15] MEDS: FLUCONAZOLE 100 MG TABLET (DIFLUCAN) PO SCH (09:14)
[2020-03-15] MEDS: METOPROLOL SUCCINATE 25 MG TAB.SR.24H (TOPROL XL) PO SCH ×2 (09:14→20:08)
[2020-03-15] MEDS: BALSAM PERU/CASTOR OIL 60 GM OINT...G. TP SCH (09:27)
[2020-03-15] MEDS ORDERED: LORazepam 2 MG/ML VIAL IVP ONE ×2 (12:45→17:00)
[2020-03-15 13:23] LABS: CALCIUM 8.3 mg/dL (8.4-11.0); CREATININE 1.41 mg/dL (0.55-1.30); INR 1.8 (0.80-1.20); POTASSIUM 4.3 mmol/L (3.5-5.1); PROTHROMBIN TIME 17.6 SECS (9.5-12.5); TOTAL BILIRUBIN 2.9 mg/dL (0.0-1.0)
[2020-03-15 13:28] LABS: BASOPHILS % (AUTO) 1.1 % (0.0-2.0); EOSINOPHILS % (AUTO) 0.7 % (0.0-4.0); LYMPHOCYTES # (AUTO) 0.3 K/uL (1.0-5.5); LYMPHOCYTES % (AUTO) 18.6 % (20.5-51.5); MEAN CORPUSCULAR HEMOGLOBIN 28 pg (27-31); MEAN CORPUSCULAR HGB CONC 33 % (32-36); MEAN CORPUSCULAR VOLUME 86 fL (79.0-98.0); MONOCYTES # (AUTO) 0.2 K/uL (0.0-1.0); NEUTROPHILS # (AUTO) 1.2 K/uL (1.8-7.7); RED BLOOD CELL COUNT(AUTO) 2.51 MIL/uL (4.2-6.2); RED CELL DISTRIBUTION WIDTH 15.9 % (9.0-15.0)
--- NOTE | 2020-03-15 13:33 | NUR ---
pt was given 2 mg ativan earlier as pre med for mri of brain, education technician here, pt still tossing and turning in bed, unable to stand still. education technician does not want to take pt as pt still moving.
[2020-03-15 13:44] LABS: HEMATOCRIT 21.6 % (36-54); HEMOGLOBIN 7.1 g/dL (14.0-18.0); PLATELET COUNT (AUTO) 31 K/uL (130-430); WHITE BLOOD COUNT (AUTO) 1.7 K/uL (4.8-10.8)
[2020-03-15] MEDS: ACYCLOVIR IV 500 MG in D5W 100 ML IV SCH (13:45)
[2020-03-15] MEDS: MUPIROCIN 2% TOPICAL OINTMENT 22 GM NS SCH ×3 (13:52→21:00)
--- NOTE | 2020-03-15 13:57 | NUR ---
DR PINTO HERE AND MADE AWARE THAT MRI NOT DONE DUE TO PT STILL MOVING A LOT EVEN AFTER GIVEN 2 MG OF ATIVAN.
[2020-03-15 14:58] LABS: NEUTROPHILS % (AUTO) 69.6 % (40.0-70.0)
[2020-03-15] MEDS ORDERED: ETOMIDATE 20 MG/ 10 ML VIAL (AMIDATE) IVP ONE (15:57)
[2020-03-15] MEDS ORDERED: ROCURONIUM BROMIDE 10 MG/ML (ZEMURON) IV ONE (15:57)
[2020-03-15] MEDS ORDERED: NS 250 ML IV ONE (16:00)
--- NOTE | 2020-03-15 16:23 | NUR ---
Spoke to Simona at [facility] transfer Dus-[phone]- She stated patients with HIV are referred to [facility], to the HIV specialists, they are not accepted at [facility]
--- NOTE | 2020-03-15 16:40 | NUR ---
[facility] RESPONSE TEAM CALLED DUE TO CHANGE IN CONDITION, NOTED THAT PT IS NOT RESPONSIVE AND BP IS IS LOW AND DESATS EVEN WITH O2.
--- NOTE | 2020-03-15 16:50 | NUR ---
DC Planing: late entry: 1445: Received call from dtr/Stacy requesting pt transfer to [facility] or [facility]. She was unhappy about the patient care here. I notified dr. Hawkins and received the lateral transfer to other per dtr's request. Per dtr, she spoke with dr. Chang who recommended the transfer. I LVM to dr. Chang's office to verify the treatment plan. No returning call from dr. Chang. >> I explained to Stacy about the lateral transfer process and financial responsibility. She agreed to pay for any services rendered as needed, ie ambulance transportation. >> Called [facility] admitting dept, said unable to accept the pt dt no capacity, there are many patients holding in emergency room. Dtr asked to call again on Wednesday for possible admission at [facility]. >> Called [facility] by TAMIR Ch . She spoke with the transfer ctr who recommended to send pt to [facility] , HIV Unit. I discussed the above info with Stacy and with the pt spouse and other family members, all wanting the pt to remain here until Wednesday. Meanwhile,during weekend Stacy will investigate the HIV Unit at [facility] , then to decide on Wednesday if the pt should transfer there or not. --TAMIR will coordinate with Stacy on Wednesday. >> Called dr. Cotter, PCP to confirm whether he can accept the pt at [facility]. Dr. Cotter said he is a hospitalist at [facility]. He does have office and is not the pt's PCP as claimed by the dtr. He is unable to help getting the pt admitted to [facility] -- Stacy made aware. Stacy said , she will search for the pt real PCP and let me know on Wednesday.
[2020-03-15] MEDS ORDERED: LORazepam 2 MG/ML VIAL ONE (17:14)
[2020-03-15] MEDS ORDERED: NOREPINEPHRINE 4 MG/4 ML VIAL IV ONE ×2 (17:18→22:38)
--- NOTE | 2020-03-15 17:30 | NUR ---
PT TRANSFERRED TO ICU -3. ENDORSED TO DIPESH RUSSELL.
--- NOTE | 2020-03-15 18:00 | NUR ---
Patient transferred from [facility] at 1730 and placed in ICU room 3. EKG leads and 02 saturation monitor placed. Patient in bed with side rails x 3. Received report from nurse Garcia.
--- NOTE | 2020-03-15 18:00 | NUR ---
spoke with pt's daughter torey, # ,and informed her that patient was transferred to icu due to change of status.
--- NOTE | 2020-03-15 19:15 | NUR ---
PM SHIFT ASSESSMENT Pt is lethargic on the vent. RR even and unlabored. ST noted on monitor. Skin warm and dry. TANIA PICCLINE in place with IVF infusing. Pelayo catheter in place and draining to gravity. OG tube noted. Bilateral wrist restraints in place, no skin issues noted. Safety precautions in place, call light within reach. Will continue to monitor.
--- NOTE | 2020-03-15 19:24 | NUR ---
Endorsed patient and gave report to NOC shift nurse.
--- NOTE | 2020-03-15 21:15 | NUR ---
Dr. Chang here to see patient and spoke with daughter on phone with updates.
[2020-03-15] MEDS ORDERED: PATIENT'S OWN TABLET PO ONE (22:00)
[2020-03-15] MEDS: NOREPINEPHRINE BITARTRATE 4 MG in D5W 246 ML IV PRN (23:13)
[2020-03-16] VITALS (34 sets, daily range): BP systolic 91–132
[2020-03-16] MEDS ORDERED: NOREPINEPHRINE 4 MG/4 ML VIAL IV ONE ×2 (01:43→10:15)
[2020-03-16] MEDS: LORazepam 2 MG/ML VIAL IVP PRN ×3 (02:47→20:02)
[2020-03-16] MEDS: NOREPINEPHRINE BITARTRATE 4 MG in D5W 246 ML IV PRN ×4 (02:48→22:27)
[2020-03-16] MEDS: NACL 0.9% 1,000 ML IV SCH (03:43)
--- NOTE | 2020-03-16 07:15 | NUR ---
ENDORSEMENT Pt care endorsed to dayshift RN using nursing SBAR.
--- NOTE | 2020-03-16 07:25 | NUR ---
Received patient and endorsed report. In no acute distress. Side rails x 3 up. Call light with in reach.
--- NOTE | 2020-03-16 07:55 | NUR ---
RT NOTES- [id number], 50%FIO2 ABG RESULTS REPORTED TO . PER DECREASED VT TO 400mL. DECREASED FIO2 TO 50% PER TITRATION ORDER. PT TOLERATING WELL AT THIS TIME. RN YVONNE MADE AWARE. WILL CONTINUE MONITORING.
[2020-03-16 08:15] LABS: FOLATE (FOLIC ACID) 8.6 ng/mL (>3.0)
--- NOTE | 2020-03-16 08:16 | NUR ---
Requested CBC, CMP for patient to MD Anaya. MD agreed daily x 1 week. Orders placed.
--- NOTE | 2020-03-16 08:19 | NUR ---
Md Anaya new order 2 units of blood and lab to assess ionized calcium and start vasopressin 0.07 mcg drip. New orders to discontinue rocephin and start zosyn 3.75 gram every 6 hours, CT of the chest, abdomen, and pelvis. 1 liter of LR and continue IVF LR 125 ml an hour. Discontinue NS IVF. Orders placed.
[2020-03-16] MEDS ORDERED: VASOPRESSIN 200 UNITS in D5W 90 ML IV PRN (08:30)
[2020-03-16] MEDS ORDERED: LR 1,000 ML IV SCH (08:30)
[2020-03-16] MEDS: METOPROLOL SUCCINATE 25 MG TAB.SR.24H (TOPROL XL) PO SCH ×2 (09:00→20:03)
[2020-03-16] MEDS: MUPIROCIN 2% TOPICAL OINTMENT 22 GM NS SCH (09:00)
[2020-03-16] MEDS: LR 1,000 ML IV SCH ×3 (09:37→23:08)
[2020-03-16] MEDS: PIPERACILLIN/TAZO 3.375/DEX-IS 50 ML IV SCH ×3 (09:41→20:02)
[2020-03-16] MEDS: ACYCLOVIR IV 500 MG in D5W 100 ML IV SCH (09:42)
[2020-03-16] MEDS: VANCOMYCIN HCL 750 MG in NS 250 ML IV SCH ×2 (09:42→22:25)
[2020-03-16] MEDS: PANTOPRAZOLE SODIUM 40 MG/VIAL (PROTONIX) IVP SCH (09:42)
[2020-03-16] MEDS: ATORVASTATIN 20 MG TABLET PO SCH (09:42)
[2020-03-16] MEDS: BIKTARVY PO SCH (09:42)
[2020-03-16] MEDS: FLUCONAZOLE 100 MG TABLET (DIFLUCAN) PO SCH (09:42)
[2020-03-16] MEDS: HYDROCORTISONE SOD SUCC 100 MG/2 ML VIAL IVP SCH ×3 (09:45→20:02)
[2020-03-16] MEDS: BALSAM PERU/CASTOR OIL 60 GM OINT...G. TP SCH (09:50)
[2020-03-16 10:00] LABS: CALCIUM 8.1 mg/dL (8.4-11.0); CREATININE 2.17 mg/dL (0.55-1.30); POTASSIUM 4.2 mmol/L (3.5-5.1); TOTAL BILIRUBIN 3.9 mg/dL (0.0-1.0)
[2020-03-16 10:24] LABS: MEAN CORPUSCULAR HEMOGLOBIN 29 pg (27-31); MEAN CORPUSCULAR HGB CONC 33 % (32-36); MEAN CORPUSCULAR VOLUME 87 fL (79.0-98.0); RED BLOOD CELL COUNT(AUTO) 2.04 MIL/uL (4.2-6.2); RED CELL DISTRIBUTION WIDTH 16.1 % (9.0-15.0)
--- NOTE | 2020-03-16 10:30 | NUR ---
MD Anaya new order of tube feeding as recommended by diplomatic interpreter.
[2020-03-16 10:35] LABS: INR 1.6 (0.80-1.20); PROTHROMBIN TIME 16.2 SECS (9.5-12.5)
[2020-03-16 10:41] LABS: HEMATOCRIT 17.7 % (36-54); HEMOGLOBIN 5.9 g/dL (14.0-18.0); WHITE BLOOD COUNT (AUTO) 1.9 K/uL (4.8-10.8)
[2020-03-16 10:42] LABS: PLATELET COUNT (AUTO) 16 K/uL (130-430)
--- NOTE | 2020-03-16 11:02 | NUR ---
Admitting Diagnosis Sepsis Reviewed Pertinent Medical/Surgical Hx Medical Record Patient Medical History Comment: Pt found w/: sepsis, septic shock, HIV, Immunocompromised status, Rule out COVID-19, Severe Anemia, Hyperlipidemia, HTN, Acidosis per MD notes. Per MD Consult notes: HIV not controlled, ?AIDS, ?Kaposi Sarcoma, Multiple Skin Lesions. *COVID-19 PCR Not detected 03/10 03/11 S/P Skin biopsy R thigh, a/w results. CXR: Bilsateral infiltrates, small left pleural effusion. Subjective Information Pt remains in ICU and RD visit was deferred d/t lack of PPE. RD tried to call pt's primary RN but was told that RN was busy inside pt's room x2 attempts. Per EMR review, pt w/ low Marcellus score, +wound to L and R buttocks per RN notes. Pt is well nourished and is not yet meeting adequate nutrition w/ current PO intake. Nutrition education is not yet appropriate. Per MD progress note, pt had code blue and is now intubate. Nutrition support may be indicated if NPO status persists d/t intubation. Current Diet Order/Nutrition Support NPO x 0 day Patient/Significant Other Unable To Verbalize Education Provided Not Indicated Pertinent Medications Piperacillin/tazobactam, Protonix, Lipitor Pertinent Labs 03/16: H/H 5.9/17.7 L, BG 282 H, BUN 69 H, CRE 2.17 H, GFR 40 L, AST 66 H, ALP 189 H Height (Feet) 5 feet Height (Inches) 11.00 inches Weight (Pounds) 174 pounds Weight (Calculated Kilograms) 78.963495 kilograms Patient Weight 78.925 kg Body Mass Index 24.26 kg/m2 %IBW 101 [place]/Adjusted Body Weight 172#/ 78 kg Recent Weight Change unknown Weight Status Appropriate Gastrointestinal Symptoms None Last BM Mar 11, 2020 Food Allergies unknown Usual Diet At Home regular diet per EMR Skin Integrity Comment: Marcellus scale: 13. Per RN notes, +wound to Left and Right buttocks, Intertriginous Dermatitis to upper coccyx. No edema noted. Current % PO N/A - currently NPO x0 days Estimated Energy Expenditure (kcals/day) 6575-0832 kcal/day (30-35 kcal/kg CBW for sepsis and HIV) Estimated Protein Required (g/day) 118-158 gm/day (1.5-2gm?kg CBW for sepsis) Estimated Fluid Required (l/day) 2.4-2.8 L/day (1ml/calorie for maintenance) Problem/Etiology/Signs/Symptoms Increased nutrient needs r/t metabolic demands AEB estimated calories and protein for sepsis. (*Ongoing) Inadequate protein-energy intake r/t poor appetite AEB PO intake meeting <50% of estimated nutritional needs. (*Ongoing) Expected Outcomes/Goals Monitor appetite and PO intake w/ goal of pt meeting at least 75% of estimated nutritional needs, labs trending WNL, normal GI function, skin integrity/wt maintenance. (*Ongoing) Dietitian Recommendations *Recommend considering alternate route of nutrition if NPO status persists. Follow Up High Risk: F/U in 2-3days
--- NOTE | 2020-03-16 11:09 | NUR ---
Dietitian Recommendations *Recommend considering alternate route of nutrition if NPO status persists. Please see nutrition F/U note for details. SS, RD
[2020-03-16] MEDS: ALBUMIN HUMAN 25% 50 ML IV SCH ×3 (12:31→23:07)
[2020-03-16 12:51] LABS: BAND % (MANUAL) 7 % (0-6); BASOPHILS % (MANUAL) 0 % (0-2); EOSINOPHILS % (MANUAL) 0 % (0-7); LYMPHOCYTES % (MANUAL) 20 % (20-46); MONOCYTES % (MANUAL) 6 % (0-11)
--- NOTE | 2020-03-16 14:30 | NUR ---
BT INITIATION: Consent signed per family agreeing to administration of blood. Blood has been type and crossmatched. First unit of blood sent from blood bank. Information on unit of blood checked against patient wristband at bedside by two nurses. All information matches. Patient or responsible libertarian informed of potential complications associated with blood transfusion. Informed of possible transfusion reaction symptoms. Aware of need to notify nurse at once of itching, shortness of breath, flushing, feeling of impending doom, or other symptoms not previously present. Vital signs taken within 5 minutes prior to initiation of transfusion. RN will remain with patient for first 15 minutes of transfusion at which time vital signs will be re-assessed.
[2020-03-16] MEDS ORDERED: FUROSEMIDE 20 MG/2 ML VIAL IVP ONE (17:00)
--- NOTE | 2020-03-16 17:30 | NUR ---
Informed MD Cuenca blood temperature range from 98.0 to 100.3. New order of Tylenol 650 mg PRN every 6 hours. Orders placed.
--- NOTE | 2020-03-16 19:15 | NUR ---
PM SHIFT ASSESSMENT Pt is lethargic on the vent. RR even and unlabored. SR noted on monitor. Skin warm and dry. TANIA PICCLINE in place with IVF infusing. Pelayo catheter in place and draining to gravity. OG tube noted. Bilateral wrist restraints in place, no skin issues noted. Safety precautions in place, call light within reach. Will continue to monitor.
--- NOTE | 2020-03-16 19:30 | NUR ---
Endorsed patient and gave report to NOC shift nurse. In no acute distress. Side rails x 3 up. Call light with in reach.
--- NOTE | 2020-03-16 20:26 | NUR ---
BT INITIATION: Second unit of blood sent from blood bank. Information on unit of blood checked against patient wristband at bedside by two nurses. All information matches. Patient or responsible democrat informed of potential complications associated with blood transfusion. Informed of possible transfusion reaction symptoms. Aware of need to notify nurse at once of itching, shortness of breath, flushing, feeling of impending doom, or other symptoms not previously present. Vital signs taken within 5 minutes prior to initiation of transfusion. RN will remain with patient for first 15 minutes of transfusion at which time vital signs will be re-assessed. Addendum: 03/16/20 at 2026 by Violette Cooper RN TIME 1814
[2020-03-17] VITALS (34 sets, daily range): BP systolic 88–130
[2020-03-17] MEDS: HYDROCORTISONE SOD SUCC 100 MG/2 ML VIAL IVP SCH ×4 (03:23→20:40)
[2020-03-17] MEDS: PIPERACILLIN/TAZO 3.375/DEX-IS 50 ML IV SCH ×4 (03:23→20:40)
[2020-03-17] MEDS: NOREPINEPHRINE BITARTRATE 4 MG in D5W 246 ML IV PRN (04:34)
[2020-03-17 06:55] LABS: BASOPHILS % (AUTO) 0.7 % (0.0-2.0); HEMATOCRIT 23.9 % (36-54); LYMPHOCYTES # (AUTO) 0.6 K/uL (1.0-5.5); LYMPHOCYTES % (AUTO) 20.3 % (20.5-51.5); MEAN CORPUSCULAR HEMOGLOBIN 30 pg (27-31); MEAN CORPUSCULAR HGB CONC 33 % (32-36); MEAN CORPUSCULAR VOLUME 89 fL (79.0-98.0); MONOCYTES # (AUTO) 0.1 K/uL (0.0-1.0); MONOCYTES % (AUTO) 4.8 % (1.7-9.3); NEUTROPHILS # (AUTO) 2.1 K/uL (1.8-7.7); RED BLOOD CELL COUNT(AUTO) 2.69 MIL/uL (4.2-6.2); RED CELL DISTRIBUTION WIDTH 15.9 % (9.0-15.0); WHITE BLOOD COUNT (AUTO) 2.8 K/uL (4.8-10.8)
--- NOTE | 2020-03-17 07:25 | NUR ---
Received patient and endorsed report. In no acute distress. Side rails x 3 up. Call light with in reach.
--- NOTE | 2020-03-17 07:26 | NUR ---
ENDORSEMENT Pt care endorsed to dayshift RN using nursing SBAR.
[2020-03-17 07:29] LABS: ALBUMIN 1.3 g/dL (3.4-4.8); CREATININE 2.31 mg/dL (0.55-1.30); POTASSIUM 4.1 mmol/L (3.5-5.1); TOTAL BILIRUBIN 6.3 mg/dL (0.0-1.0)
--- NOTE | 2020-03-17 08:00 | NUR ---
RT NOTES- 30% FIO2 DECREASED FIO2 TO 30% AT THIS TIME PER TITRATION ORDER. RN MADE AWARE. WILL CONTINUE MONITORING.
[2020-03-17] MEDS ORDERED: LR 1,000 ML IV SCH (08:30)
[2020-03-17] MEDS: LR 1,000 ML IV SCH ×2 (08:30→15:40)
--- NOTE | 2020-03-17 08:30 | NUR ---
MD Anaya at bedside.
[2020-03-17 08:31] LABS: PLATELET COUNT (AUTO) 17 K/uL (130-430)
[2020-03-17] MEDS: METOPROLOL SUCCINATE 25 MG TAB.SR.24H (TOPROL XL) PO SCH ×2 (09:00→20:41)
[2020-03-17] MEDS ORDERED: FUROSEMIDE 20 MG/2 ML VIAL IVP SCH (09:00)
[2020-03-17] MEDS: PANTOPRAZOLE SODIUM 40 MG/VIAL (PROTONIX) IVP SCH (09:00)
[2020-03-17] MEDS: VANCOMYCIN HCL 750 MG in NS 250 ML IV SCH ×3 (09:45→23:19)
[2020-03-17] MEDS: ACYCLOVIR IV 500 MG in D5W 100 ML IV SCH (09:45)
[2020-03-17] MEDS: ATORVASTATIN 20 MG TABLET PO SCH (09:46)
[2020-03-17] MEDS: LORazepam 2 MG/ML VIAL IVP PRN ×2 (09:47→20:41)
[2020-03-17] MEDS: BIKTARVY PO SCH (09:47)
[2020-03-17] MEDS: BALSAM PERU/CASTOR OIL 60 GM OINT...G. TP SCH (09:47)
[2020-03-17 10:34] LABS: INR 1.7 (0.80-1.20); PROTHROMBIN TIME 17.2 SECS (9.5-12.5)
--- NOTE | 2020-03-17 10:35 | NUR ---
MD Anaya new order to discontinue IV fluids. Orders placed.
--- NOTE | 2020-03-17 10:58 | NUR ---
Nutrition F/U Admitting Diagnosis: Sepsis Medical History Comment: Pt found w/: sepsis, septic shock, HIV, Immunocompromised status, Rule out COVID-19, Severe Anemia, Hyperlipidemia, HTN, Acidosis per MD notes. Per MD Consult notes: HIV not controlled, ?AIDS, ?Kaposi Sarcoma, Multiple Skin Lesions. *COVID-19 PCR Not detected 03/10 03/11 S/P Skin biopsy R thigh, a/w results. CXR: Bilsateral infiltrates, small left pleural effusion. 03/17: Nephrology notes: ARF on CKD Subjective Information: Nutrition Consult received for GT feeding 03/16. Pt remains in ICU and RD visit was deferred d/t lack of PPE. Per EMR review, pt was intubated on 03/15, on vent support. Last BM 03/17 x1. Pt has been refusing meals on 03/14 and 03/15. Prior to that, pt was on Cardiac diet but already w/ poor PO intake. RD tried to s/w pt's primary RN, x3 attempts but was not available. Nursing unit reported that pt has OGT. Current Diet Order/Nutrition Support: NPO x 2 days Pertinent Medications Piperacillin/tazobactam, Protonix, Lipitor, Lasix, Vancomycin, Solu-cortef Pertinent Labs 03/17: Na 150 H, K 4.1 WNL, BG 184 H (trending down), BUN 79 H (trending up), CRE 2.31 H (trending up), WBC 1.9 L, AST 59 H (trending down), ALP 144 H (trending down) Skin Integrity Comment: Marcellus scale: 13. Per [employer] Supervisor note 03/13: Wound (possibly cancerous) S/P biopsy: Anterior Nose/Right cheek. Per RN notes, 3+ pitting edema to Bilateral leg and BUE. Current % PO N/A - currently NPO x0 days NEW Estimated Energy Expenditure (kcals/day) (Temperature 37.94 degrees Celsius, 100.3 degrees Fahrenheit; Ve: 10.7) 2009 kcal/day (PSU for critical illness on vent) NEW Estimated Protein Required (g/day) 79-118 gm/day (1-1.5 gm/kg CBW for Renal Dz predialysis, sepsis and wound healing) Estimated Fluid Required (l/day) 2L/day (1ml/calorie for maintenance) Problem/Etiology/Signs/Symptoms Increased nutrient needs r/t metabolic demands AEB estimated calories and protein for sepsis. (*Ongoing) Inadequate protein-energy intake r/t poor appetite AEB PO intake meeting <50% of estimated nutritional needs. (*Ongoing) Altered nutrition-related labs r/t renal dysfunction AEB elevated BUN and SCre lab values and new Renal Disease. (*new 03/17) Expected Outcomes/Goals Monitor provision of EN support w/ goal of pt meeting at least 75% of estimated nutritional needs, labs trending WNL, normal GI function, skin integrity/wt maintenance. (*Ongoing) Dietitian Recommendations *Recommend Nepro at 30ml/hr (goal rate), Free Water Flush per MD via OGT. Provides: 1296 kcal, 58gm protien and 523ml free water from EN alone. Meets: 65% of estimated calorie needs and 73% of lower end of estimated protein needs. Follow Up High Risk: F/U in 2-3days
--- NOTE | 2020-03-17 11:13 | NUR ---
Dietitian Recommendations *Recommend Nepro at 30ml/hr (goal rate), Free Water Flush per MD via OGT. Provides: 1296 kcal, 58gm protien and 523ml free water from EN alone. Meets: 65% of estimated calorie needs and 73% of lower end of estimated protein needs. Please see Nutrition F/U note for details. JARAD, RD
[2020-03-17] MEDS: ALBUMIN HUMAN 25% 50 ML IV SCH ×3 (11:29→19:36)
--- NOTE | 2020-03-17 11:30 | NUR ---
Heparin drip turned off as requested by MD Rutledge. MD Rutledge stated will come in evening for dialysis placement. Addendum: 03/17/20 at 1236 by Violette Cooper RN WRONG PATIENT.
[2020-03-17 11:46] LABS: NEUTROPHILS % (AUTO) 74.2 % (40.0-70.0)
[2020-03-17] MEDS: ACETAMINOPHEN 325 MG TABLET PO PRN (11:55)
--- NOTE | 2020-03-17 12:33 | NUR ---
Reported to MD Aggarwal PT/INR, CBC, PTT, and Fibrinogen. New order 10 bags of cryoprecipitate and 1 unit of platelet with repeat of CBC, PT/INR, CBC, PTT, and Fibrinogen tomorrow morning labs. Orders placed.
--- NOTE | 2020-03-17 15:15 | NUR ---
Son and daughter at bedside with patient.
--- NOTE | 2020-03-17 15:45 | NUR ---
MD Terry at bedside with family.
--- NOTE | 2020-03-17 16:15 | NUR ---
MD Terry new order to renewal bilateral restraints.
--- NOTE | 2020-03-17 17:30 | NUR ---
Turned off Levophed at this time.
--- NOTE | 2020-03-17 19:15 | NUR ---
PM SHIFT ASSESSMENT Pt is on the vent. RR even and unlabored. SR noted on monitor. Skin warm and dry. TANIA PICCLINE in place with IVF infusing. Pelayo catheter in place and draining to gravity. OG tube noted. Bilateral wrist restraints in place, no skin issues noted. Safety precautions in place, call light within reach. Will continue to monitor.
--- NOTE | 2020-03-17 19:20 | NUR ---
Gave report and endorsed patient to NOC shift nurse. In no acute distress. Side rails x 3 up.
[2020-03-18] VITALS (32 sets, daily range): BP systolic 91–135
[2020-03-18] MEDS: HYDROCORTISONE SOD SUCC 100 MG/2 ML VIAL IVP SCH ×2 (03:44→08:28)
[2020-03-18] MEDS: PIPERACILLIN/TAZO 3.375/DEX-IS 50 ML IV SCH ×2 (03:44→08:23)
[2020-03-18] MEDS: LORazepam 2 MG/ML VIAL IVP PRN ×3 (03:45→17:11)
[2020-03-18 06:49] LABS: INR 1.5 (0.80-1.20); PROTHROMBIN TIME 15.5 SECS (9.5-12.5)
--- NOTE | 2020-03-18 07:25 | NUR ---
ENDORSEMENT Pt care endorsed to dayshift RN using nursing SBAR.
[2020-03-18 07:28] LABS: HEMOGLOBIN 7.3 g/dL (14.0-18.0); MEAN CORPUSCULAR HEMOGLOBIN 30 pg (27-31); MEAN CORPUSCULAR HGB CONC 34 % (32-36); MEAN CORPUSCULAR VOLUME 87 fL (79.0-98.0); RED BLOOD CELL COUNT(AUTO) 2.47 MIL/uL (4.2-6.2); RED CELL DISTRIBUTION WIDTH 16.3 % (9.0-15.0)
[2020-03-18 07:38] LABS: HEMATOCRIT 21.6 % (36-54); WHITE BLOOD COUNT (AUTO) 1.5 K/uL (4.8-10.8)
[2020-03-18 07:39] LABS: PLATELET COUNT (AUTO) 16 K/uL (130-430)
--- NOTE | 2020-03-18 08:14 | NUR ---
DR CORRIE BLAND AND MADE AWARE OF THE CRITICAL LAB RESULTS.
[2020-03-18] MEDS: ACYCLOVIR IV 500 MG in D5W 100 ML IV SCH (08:24)
[2020-03-18] MEDS: METOPROLOL SUCCINATE 25 MG TAB.SR.24H (TOPROL XL) PO SCH ×2 (08:24→22:33)
[2020-03-18] MEDS: ATORVASTATIN 20 MG TABLET PO SCH (08:25)
[2020-03-18] MEDS: PANTOPRAZOLE SODIUM 40 MG/VIAL (PROTONIX) IVP SCH (08:25)
[2020-03-18] MEDS: BIKTARVY PO SCH (08:26)
[2020-03-18] MEDS: BALSAM PERU/CASTOR OIL 60 GM OINT...G. TP SCH (08:33)
[2020-03-18 08:47] LABS: POTASSIUM 3.6 mmol/L (3.5-5.1)
[2020-03-18 08:50] LABS: CALCIUM 7.8 mg/dL (8.4-11.0)
[2020-03-18 08:51] LABS: ALBUMIN 1.3 g/dL (3.4-4.8); CREATININE 2.19 mg/dL (0.55-1.30)
[2020-03-18] MEDS ORDERED: TBO-FILGRASTIM 480 MCG/0.8 ML SYRINGE SUBCUT SCH (09:00)
[2020-03-18] MEDS ORDERED: TBO-FILGRASTIM 480 MCG/0.8 ML SYRINGE SUBCUT ONE (09:00)
[2020-03-18 09:28] LABS: ATYPICAL LYMPHOCYTES % 0 % (0-0); BAND % (MANUAL) 16 % (0-6); BASOPHILS % (MANUAL) 0 % (0-2); EOSINOPHILS % (MANUAL) 0 % (0-7); LYMPHOCYTES % (MANUAL) 11 % (20-46); MONOCYTES % (MANUAL) 3 % (0-11)
[2020-03-18] MEDS: VANCOMYCIN HCL 750 MG in NS 250 ML IV SCH (09:51)
--- NOTE | 2020-03-18 12:46 | NUR ---
ATIVAN GIVEN, PT'S RESP RATE ON THE 30'S.
[2020-03-18] MEDS: MEROPENEM 500 MG in NS 50 ML IV SCH (12:53)
[2020-03-18] MEDS: D5W 1,000 ML IV SCH (14:14)
--- NOTE | 2020-03-18 15:26 | NUR ---
PT'S DAUGHTER ALISHA UPDATED WITH PT'S CONDITION. INFORMED HER OF THE CHANGE IN IV ABX AND INCREASED RESP RATE.
--- NOTE | 2020-03-18 15:57 | NUR ---
CM note-Spoke w/ daughter Stacy-she stated she would like to have her father moved to [facility] when he is medically stable for transfer and there is a bed available at the hospital.
--- NOTE | 2020-03-18 16:40 | NUR ---
LEUKO REDUCED PLATELET NOT YET READY FROM BLOODBANK. WILL CONT TO MONITOR.
--- NOTE | 2020-03-18 19:03 | NUR ---
PT'S DAUGHTER ALISHA UPDATED WITH PT'S STATUS.
--- NOTE | 2020-03-18 19:05 | NUR ---
FOLLOWED UP WITH BLOODBANK THE PLATELET, I WAS TOLD THE THEY JUST GOT THE UNIT AND THEY WILL PROCESS IT. WILL ENDORSE TO NIGHT NURSE.
--- NOTE | 2020-03-18 19:10 | NUR ---
CLOSING NOTES: PT ENDORSED TO NIGHT NURSE MICHELLE. PT ON STABLE CONDITION, PT TAHYPNEIC AT 28 AT THIS TIME, PT GIVEN ATIVAN 2X BUT DID NOT HELP MUCH, NO CHANGE IN THE VENT SETTINGS. ENDORSED TO NIGHT RN TRANSFUSION OF PLATELET WHICH WILL BE AVAILABLE FROM BLOOD BANK AT AROUND 730PM.
--- NOTE | 2020-03-18 19:30 | NUR ---
Opening note Received patient after report from dayshift nurse. Not responding to light stimuli, not opening eyes. Pupils reactive to light. vent to ETT in place tolerating settings AC 18. TANIA picc patent and infusing ivf. orders to transfuse platelets; waiting for lab to confirm when ready. will continue to monitor as per unit protocol.
--- NOTE | 2020-03-18 22:30 | NUR ---
Daughter Stacy called and asked if platelet was transfused. Information provided.
--- NOTE | 2020-03-18 23:09 | NUR ---
PAGED DR. JACOBSON FOR ORDERS DIALED: [phone] SPOKE TO: SOCORRO
--- NOTE | 2020-03-18 23:36 | NUR ---
Call back from Dr Hawkins; orders received for labs in am CBC, CMP
[2020-03-19] VITALS (35 sets, daily range): BP systolic 101–138
--- NOTE | 2020-03-19 00:20 | NUR ---
Assessment completed, patient repositioned for comfort.
[2020-03-19] MEDS: MEROPENEM 500 MG in NS 50 ML IV SCH ×2 (01:51→12:26)
[2020-03-19] MEDS: MORPHINE 2 MG/ML INJ. SYRINGE IVP PRN ×2 (04:32→10:02)
[2020-03-19 06:33] LABS: BASOPHILS % (AUTO) 0.4 % (0.0-2.0); EOSINOPHILS % (AUTO) 0.3 % (0.0-4.0); HEMATOCRIT 22.4 % (36-54); HEMOGLOBIN 7.5 g/dL (14.0-18.0); LYMPHOCYTES # (AUTO) 0.3 K/uL (1.0-5.5); LYMPHOCYTES % (AUTO) 18.9 % (20.5-51.5); MEAN CORPUSCULAR HEMOGLOBIN 30 pg (27-31); MEAN CORPUSCULAR HGB CONC 34 % (32-36); MEAN CORPUSCULAR VOLUME 88 fL (79.0-98.0); NEUTROPHILS # (AUTO) 1.2 K/uL (1.8-7.7); NEUTROPHILS % (AUTO) 78.4 % (40.0-70.0); RED BLOOD CELL COUNT(AUTO) 2.55 MIL/uL (4.2-6.2); RED CELL DISTRIBUTION WIDTH 16.3 % (9.0-15.0)
[2020-03-19 07:22] LABS: PLATELET COUNT (AUTO) 26 K/uL (130-430); WHITE BLOOD COUNT (AUTO) 1.5 K/uL (4.8-10.8)
--- NOTE | 2020-03-19 07:40 | NUR ---
dr baca here and seen pt, made aware of the critical wbc and plt level, no new orders.
[2020-03-19 07:58] LABS: ALBUMIN 1.3 g/dL (3.4-4.8); CALCIUM 8.1 mg/dL (8.4-11.0); CREATININE 2.72 mg/dL (0.55-1.30); POTASSIUM 3.4 mmol/L (3.5-5.1)
[2020-03-19] MEDS: BIKTARVY PO SCH (08:05)
[2020-03-19] MEDS: LORazepam 2 MG/ML VIAL IVP PRN (08:06)
[2020-03-19] MEDS: BALSAM PERU/CASTOR OIL 60 GM OINT...G. TP SCH (08:07)
[2020-03-19] MEDS: ATORVASTATIN 20 MG TABLET PO SCH (08:07)
[2020-03-19] MEDS: METOPROLOL SUCCINATE 25 MG TAB.SR.24H (TOPROL XL) PO SCH ×2 (08:07→20:21)
[2020-03-19] MEDS: PANTOPRAZOLE SODIUM 40 MG/VIAL (PROTONIX) IVP SCH (08:07)
--- NOTE | 2020-03-19 08:24 | NUR ---
dr rossi here and seen ptmd aware of the increase heart rate and resp rate. no new orders. am meds given via g-tube. pt medicated with ativan.
[2020-03-19 08:25] LABS: TOTAL BILIRUBIN 7.4 mg/dL (0.0-1.0)
[2020-03-19] MEDS: D5W 1,000 ML IV SCH (09:15)
[2020-03-19] MEDS: TBO-FILGRASTIM 480 MCG/0.8 ML SYRINGE SUBCUT SCH (09:23)
[2020-03-19] MEDS: D5/0.45 NS 1,000 ML IV SCH ×2 (12:26→18:58)
--- NOTE | 2020-03-19 12:43 | NUR ---
dr álvarez was here and seen pt. new orders given. orders carried out. pt's rr is now at 24. pt received morphine earlier.
--- NOTE | 2020-03-19 15:03 | NUR ---
pt's rr is 21, bp 101/54, pt resting in bed, pt received d5.5 at 150cc/hr
--- NOTE | 2020-03-19 19:15 | NUR ---
Opening Note Received report from AM nurse using SBAR approach.
--- NOTE | 2020-03-19 19:24 | NUR ---
closing notes, pt endorse to night trish jimenez, pt starting to wake up again, rr and hr going up again, endorsed to [facility] to check if we can renew ativan and ms. pt is on stable condition otherwise.
--- NOTE | 2020-03-19 20:22 | NUR ---
PAGED DR. JACOBSON FOR ORDERS DIALED: [phone] SPOKE TO: TALIA
--- NOTE | 2020-03-19 20:47 | NUR ---
PAGED DR. JACOBSON FOR ORDERS DIALED: [phone] SPOKE TO: TALIA
--- NOTE | 2020-03-19 20:57 | NUR ---
MD MARR Pageflorin Hawkins to renew order for ativan and morphine to 1 mg q4. agreed. Addendum: 03/19/20 at 2101 by Ethel Ernst RN MD MARR Pageflorin Hawkins to renew order for ativan and morphine to 1 mg q4 PRN. agreed.
[2020-03-19] MEDS ORDERED: LORazepam 2 MG/ML VIAL IVP PRN (21:15)
--- NOTE | 2020-03-19 21:30 | NUR ---
MAC Transfer denied MAC denied transfer of patient because there is no space available.
--- NOTE | 2020-03-19 22:30 | NUR ---
Platelet Order Stacy Singh ([phone]) called [place]. She stated that Dr. Becerril will need to fill it out and every field needs to be filled out. Paper work is in the back of the patient's chart. Attendant [facility] N[facility] received the call.
[2020-03-20] VITALS (31 sets, daily range): BP systolic 90–129
[2020-03-20] MEDS: MEROPENEM 500 MG in NS 50 ML IV SCH ×2 (00:35→14:27)
[2020-03-20] MEDS: D5/0.45 NS 1,000 ML IV SCH ×3 (00:41→21:54)
[2020-03-20 06:03] LABS: LYMPHOCYTES # (AUTO) 0.4 K/uL (1.0-5.5); LYMPHOCYTES % (AUTO) 33.3 % (20.5-51.5); MEAN CORPUSCULAR HEMOGLOBIN 30 pg (27-31); MEAN CORPUSCULAR HGB CONC 34 % (32-36); MEAN CORPUSCULAR VOLUME 89 fL (79.0-98.0); NEUTROPHILS % (AUTO) 59.7 % (40.0-70.0); RED BLOOD CELL COUNT(AUTO) 2.26 MIL/uL (4.2-6.2); RED CELL DISTRIBUTION WIDTH 16.7 % (9.0-15.0)
[2020-03-20 06:48] LABS: ALBUMIN 1.1 g/dL (3.4-4.8); CREATININE 2.84 mg/dL (0.55-1.30); POTASSIUM 3.6 mmol/L (3.5-5.1); TOTAL BILIRUBIN 9.9 mg/dL (0.0-1.0)
--- NOTE | 2020-03-20 07:30 | NUR ---
Opening Note Received bedside report from endorsing RN for continuation of care. Received patient intubated and resting in bed, no signs or symptoms of acute distress noted. Bed locked in lowest position and bed alarm on. Fall and safety precautions in place.
[2020-03-20 07:32] LABS: NEUTROPHILS # (AUTO) 0.7 K/uL (1.8-7.7)
[2020-03-20 07:34] LABS: HEMOGLOBIN 6.7 g/dL (14.0-18.0); PLATELET COUNT (AUTO) 25 K/uL (130-430); WHITE BLOOD COUNT (AUTO) 1.2 K/uL (4.8-10.8)
--- NOTE | 2020-03-20 08:20 | NUR ---
Dr. Miller in to see patient. New orders received.
[2020-03-20] MEDS ORDERED: FUROSEMIDE 40 MG/4 ML VIAL IVP ONE (08:30)
--- NOTE | 2020-03-20 09:03 | NUR ---
At daughter Stacy's request-request for transfer sent to [facility]-[phone]-unable to accept patient,[facility] [phone]-unable to accept patient, [facility] [phone]-unable to accept patient, [facility] [phone]-unable to accept pt, [facility] [phone]-unable to accept pt, [facility] [phone]-unable to accept pt, [facility] [phone]-unable to accept pt, Pt info FAXed to [facility] [phone]--pt placed on waiting list, [facility]-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 According to patient's daughter-Dr Chang informed her [facility] is unable to Accept the patient.
--- NOTE | 2020-03-20 09:35 | NUR ---
Dr. Tapia in to see patient. New orders received for blood transfusion, placement of dialysis catheter, and hemodialysis.
[2020-03-20] MEDS: BIKTARVY PO SCH (09:44)
[2020-03-20] MEDS: ATORVASTATIN 20 MG TABLET PO SCH (09:45)
[2020-03-20] MEDS: PANTOPRAZOLE SODIUM 40 MG/VIAL (PROTONIX) IVP SCH (09:45)
[2020-03-20] MEDS: METOPROLOL SUCCINATE 25 MG TAB.SR.24H (TOPROL XL) PO SCH ×2 (09:47→21:54)
[2020-03-20] MEDS: BALSAM PERU/CASTOR OIL 60 GM OINT...G. TP SCH (09:48)
[2020-03-20] MEDS: TBO-FILGRASTIM 480 MCG/0.8 ML SYRINGE SUBCUT SCH (09:50)
[2020-03-20] MEDS ORDERED: INSULIN REGULAR, HUMAN 100 UNITS/ML, 10 ML VIAL (humuLIN R) SUBCUT PRN (10:15)
--- NOTE | 2020-03-20 10:30 | NUR ---
BT INITIATION: PRBCS Consent signed per agreeing to administration of blood. Blood has been type and crossmatched. Blood sent from blood bank. Information on unit of blood checked against patient wristband at bedside by two nurses. All information matches. Patient or responsible libertarian informed of potential complications associated with blood transfusion. Informed of possible transfusion reaction symptoms. Aware of need to notify nurse at once of itching, shortness of breath, flushing, feeling of impending doom, or other symptoms not previously present. Vital signs taken within 5 minutes prior to initiation of transfusion: HR 114, BP 102/44, RR 29, SpO2 98%, and Temperature 98.2. RN will remain with patient for first 15 minutes of transfusion at which time vital signs will be re-assessed. Addendum: 03/20/20 at 1149 by Kenna Max RN Consent signed per patient's daughter tSacy via telephone consent.
[2020-03-20] MEDS ORDERED: HEPARIN SODIUM,PORCINE 5000 UNITS/ML VIAL ONE (11:15)
--- NOTE | 2020-03-20 11:15 | NUR ---
Dialysis Catheter Placement Dr. Acuna at bedside for placement of dialysis catheter.
--- NOTE | 2020-03-20 12:14 | NUR ---
Pt was referred for transfer to [facility] [phone]-unable to accept patient-No ICU beds, [facility] [phone] unable to accept patient-no ICU bed, [phone]-no ICU bed available, [facility] [phone]-no ICU bed available-closed to saturation-will put pt on waiting list-transfer packet sent, [facility] Htq-[phone]-no ICU bed, [facility] [phone]-no ICU beds-closed to transfers. Spoke to [facility]-given reference # [id number] closed to saturation, spoke w/ [facility]-waiting for acceptance from product promoter retail pet. Call placed to daughter, Stacy. She was given an updated on transfer status for her father. She stated understanding of information given.
--- NOTE | 2020-03-20 12:30 | NUR ---
Dr. Mcmahan at bedside to see patient. No new orders.
--- NOTE | 2020-03-20 12:40 | NUR ---
BT COMPLETE: PRBCS Blood transfusion complete. Patient tolerated well. No signs or symptoms of acute distress noted.
--- NOTE | 2020-03-20 13:00 | NUR ---
BT INITIATION: Pheresis Platelets Consent signed per patient's daughter Stacy via telephone consent agreeing to administration of blood. Blood has been type and crossmatched. Blood sent from blood bank. Information on unit of blood checked against patient wristband at bedside by two nurses. All information matches. Patient or responsible libertarian informed of potential complications associated with blood transfusion. Informed of possible transfusion reaction symptoms. Aware of need to notify nurse at once of itching, shortness of breath, flushing, feeling of impending doom, or other symptoms not previously present. Vital signs taken within 5 minutes prior to initiation of transfusion: HR 112, BP 117/46, RR 29, SpO2 98%, and Temperature 98.2. RN will remain with patient for first 15 minutes of transfusion at which time vital signs will be re-assessed.
--- NOTE | 2020-03-20 13:24 | NUR ---
Dr. Smith at bedside to see patient. No new orders.
--- NOTE | 2020-03-20 14:01 | NUR ---
Nutrition F/U Admitting Diagnosis: Sepsis Medical History Comment: Pt found w/: sepsis, septic shock, HIV, Immunocompromised status, Rule out COVID-19, Severe Anemia, Hyperlipidemia, HTN, Acidosis per MD notes. Per MD Consult notes: HIV not controlled, ?AIDS, ?Kaposi Sarcoma, Multiple Skin Lesions. 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 03/17: Nephrology notes: ARF on CKD Subjective Information: Nutrition Consult received for GT feeding 03/16. Pt remains in ICU and RD visit was deferred d/t lack of PPE. RD s/w pt's primary RN who reported that pt is tolerating EN well, very low residual this morning. RN also doubts any plans for GT placement d/t hemodynamically instability. Per Nephrology notes, kidney function is worsening, Plan for Dwight cath placement and start dialysis. Pt is also for blood transfusion. Last BM 03/20 x2. Current EN regimen is inadequate. Pt may benefit from increasing infusion rate. Current Diet Order/Nutrition Support: Nepro at 30ml/hr FWF 200ml Q4H via OGT. Pertinent Medications Protonix, Lipitor,Granix Pertinent Labs 03/20: Na 145 WNL, K 3.6 WNL, BG 164 H (trending down), BUN 103 H (trending up), CRE 2.84 H (trending up), WBC 1.2 L, AST 184 H (trending up), ALP 362 H (trending up) Skin Integrity Comment: Marcellus scale: 11. Per Baggage Screener note 03/13: Wound (possibly cancerous) S/P biopsy: Anterior Nose/Right cheek. Current % PO N/A - currently on EN support NEW Estimated Energy Expenditure (kcals/day) (Temperature 37.94 degrees Celsius, 100.3 degrees Fahrenheit; Ve: 10.7) 1963 kcal/day (PSU for critical illness on vent) NEW Estimated Protein Required (g/day) 65-118 gm/day (1.2-1.5 gm/kg CBW for Renal Dz on dialysis, sepsis and wound healing) NEW Estimated Fluid Required (l/day) per MD (Renal Dz) Problem/Etiology/Signs/Symptoms Increased nutrient needs r/t metabolic demands AEB estimated calories and protein for sepsis. (*Ongoing) Inadequate protein-energy intake r/t poor appetite AEB PO intake meeting <50% of estimated nutritional needs. (*no longer applicable, on EN support) Altered nutrition-related labs r/t renal dysfunction AEB elevated BUN and SCre lab values and new Renal Disease. (*ongoing) Inadequate EN intake r/t current infusion rate via NGT AEB EN intake meeting <70% of estimated needs. (*new 03/20) Expected Outcomes/Goals Monitor tolerance and intake of EN support w/ goal of pt meeting at least 75% of estimated nutritional needs, labs trending WNL, normal GI function, skin integrity/wt maintenance. Dietitian Recommendations *Recommend continue: Nepro at 30ml/hr (goal rate), Free Water Flush per MD via OGT. Provides: 1296 kcal, 58gm protien and 523ml free water from EN alone. Meets: 65% of estimated calorie needs and 73% of lower end of estimated protein needs. *Recommend GT placement to better meet nutritional needs. Follow Up High Risk: F/U in 2-3days
--- NOTE | 2020-03-20 14:15 | NUR ---
Dietitian Recommendations *Recommend continue: Nepro at 30ml/hr (goal rate), Free Water Flush per MD via OGT. Provides: 1296 kcal, 58gm protien and 523ml free water from EN alone. Meets: 65% of estimated calorie needs and 73% of lower end of estimated protein needs. *Recommend GT placement to better meet nutritional needs. PLease see Nutrition F/U note for details. JARAD, RD
--- NOTE | 2020-03-20 15:40 | NUR ---
BT COMPLETE: Pheresis Platelets Blood transfusion complete. Patient tolerated well. No signs or symptoms of acute distress noted.
--- NOTE | 2020-03-20 16:00 | NUR ---
Hemodialysis Hemodialysis being done at bedside by ruby on rails consultant Srikanth.
--- NOTE | 2020-03-20 18:45 | NUR ---
Dr. Chang in to see patient. No new orders.
--- NOTE | 2020-03-20 19:10 | NUR ---
Spoke with patient's daughter Stacy on the phone regarding forms for [employer]. All questions answered clearly and education provided.
--- NOTE | 2020-03-20 19:15 | NUR ---
Closing Note Endorsed bedside report to oncoming RN using SBAR approach for continuation of care.
--- NOTE | 2020-03-20 19:30 | NUR ---
Opening Note Received plan of care via sbar from endorsing DIPESH Cabrera
[2020-03-21] VITALS (34 sets, daily range): BP systolic 90–125
[2020-03-21] MEDS: MEROPENEM 500 MG in NS 50 ML IV SCH ×2 (01:36→12:58)
[2020-03-21 06:09] LABS: BASOPHILS % (AUTO) 1.3 % (0.0-2.0); EOSINOPHILS % (AUTO) 4.2 % (0.0-4.0); LYMPHOCYTES # (AUTO) 0.4 K/uL (1.0-5.5); MEAN CORPUSCULAR HEMOGLOBIN 30 pg (27-31); MEAN CORPUSCULAR HGB CONC 34 % (32-36); MEAN CORPUSCULAR VOLUME 88 fL (79.0-98.0); MONOCYTES # (AUTO) 0.1 K/uL (0.0-1.0); MONOCYTES % (AUTO) 7.2 % (1.7-9.3); NEUTROPHILS % (AUTO) 50.3 % (40.0-70.0); RED BLOOD CELL COUNT(AUTO) 2.35 MIL/uL (4.2-6.2); RED CELL DISTRIBUTION WIDTH 16.2 % (9.0-15.0)
[2020-03-21 06:16] LABS: CALCIUM 7.4 mg/dL (8.4-11.0); CREATININE 2.87 mg/dL (0.55-1.30); POTASSIUM 3.2 mmol/L (3.5-5.1)
[2020-03-21 06:42] LABS: NEUTROPHILS # (AUTO) 0.5 K/uL (1.8-7.7)
[2020-03-21 06:44] LABS: HEMATOCRIT 20.7 % (36-54); PLATELET COUNT (AUTO) 30 K/uL (130-430); WHITE BLOOD COUNT (AUTO) 1.1 K/uL (4.8-10.8)
--- NOTE | 2020-03-21 06:45 | NUR ---
Paged Dr. Patel to discuss critical value for WBC, HGB, HCT, and PLT.
--- NOTE | 2020-03-21 06:58 | NUR ---
Dr. Patel called and no new orders received.
--- NOTE | 2020-03-21 07:09 | NUR ---
Closing Note Provided plan of care via sbar to receiving DIPESH Byrd.
--- NOTE | 2020-03-21 08:00 | NUR ---
Dr. Chang in to see patient. New orders received for 1 unit PRBCs and labs.
[2020-03-21 09:15] LABS: INR 1.5 (0.80-1.20); PROTHROMBIN TIME 14.5 SECS (9.5-12.5)
--- NOTE | 2020-03-21 09:23 | NUR ---
Dr. Miller at bedside examining patient. New orders received.
[2020-03-21] MEDS ORDERED: NS 500 ML IV ONE (09:30)
[2020-03-21] MEDS: PANTOPRAZOLE SODIUM 40 MG/VIAL (PROTONIX) IVP SCH (09:36)
[2020-03-21] MEDS: TBO-FILGRASTIM 480 MCG/0.8 ML SYRINGE SUBCUT SCH (09:36)
[2020-03-21] MEDS: METOPROLOL SUCCINATE 25 MG TAB.SR.24H (TOPROL XL) PO SCH ×2 (09:37→20:30)
[2020-03-21] MEDS: ATORVASTATIN 20 MG TABLET PO SCH (09:37)
[2020-03-21] MEDS: BALSAM PERU/CASTOR OIL 60 GM OINT...G. TP SCH (09:38)
[2020-03-21] MEDS: BIKTARVY PO SCH (09:40)
[2020-03-21] MEDS: ALBUMIN HUMAN 25% 50 ML IV SCH ×3 (09:42→16:38)
[2020-03-21] MEDS: D5/0.45 NS 1,000 ML IV SCH ×2 (09:42→23:59)
--- NOTE | 2020-03-21 09:50 | NUR ---
Dr. Mcmahan at bedside examining patient. No new orders.
[2020-03-21] MEDS ORDERED: POTASSIUM CHLORIDE 20 MEQ TAB.PRT.SR PO ONE (10:00)
--- NOTE | 2020-03-21 12:07 | NUR ---
Dr. Smith at bedside examining patient. No new orders.
--- NOTE | 2020-03-21 14:10 | NUR ---
BT INITIATION: 1 unit of PRBCs (administered with hemodialysis) Consent signed per patient's daughter Stacy via telephone consent agreeing to administration of blood. Blood has been type and crossmatched. Blood sent from blood bank. Information on unit of blood checked against patient wristband at bedside by two nurses. All information matches. Patient or responsible democrat informed of potential complications associated with blood transfusion. Informed of possible transfusion reaction symptoms. Aware of need to notify nurse at once of itching, shortness of breath, flushing, feeling of impending doom, or other symptoms not previously present. Vital signs taken within 5 minutes prior to initiation of transfusion: HR 97, BP 103/52, RR 18, SpO2 98%, and Temperature 97.1. RN will remain with patient for first 15 minutes of transfusion at which time vital signs will be re-assessed.
--- NOTE | 2020-03-21 14:15 | NUR ---
Hemodialysis Hemodialysis being done at bedside by r d internship Srikanth.
--- NOTE | 2020-03-21 15:54 | NUR ---
Spoke w/ [facility]-at maximum bed capacity-unable to accept transfers at this time. Spoke w/ [facility]-at maximum bed capicity-unable to accept transfers at this time. [facility]-waiting for acceptance by commercial management accountant. Daughter Stacy notified there is no bed for transfer for her father today.
--- NOTE | 2020-03-21 17:00 | NUR ---
Dr. Tapia in to see patient. No new orders.
--- NOTE | 2020-03-21 17:02 | NUR ---
Family at Bedside Patient's daughter Stacy and son at bedside to visit patient.
--- NOTE | 2020-03-21 19:16 | NUR ---
Closing Note Endorsed bedside report to oncoming RN using SBAR approach for continuation of care.
--- NOTE | 2020-03-21 19:30 | NUR ---
PM ASSESSMENT REPORT RECEIVED FROM JOSEPH LANDON. PT RECEIVED IN BED WITH EYES CLOSED, RESPONDING TO TACTILE STIMULATION. VSS, NO S/S OF ACUTE DISTRESS NOTED. PT INTUBATED, VENT SETTINGS: AC 18, TV 400, FIO2 45%, PEEP 5. TANIA PICC IN PLACE INFUSING D5 1/2 NS @ 75 CC/HR. LIJ YVAN CATH NOTED FOR DIALYSIS ACCESS. OGT IN PLACE RUNNING NEPRO @ 30 CC/HR. BILATERAL SOFT WRIST RESTRAINTS IN PLACE, NO S/S OF INJURY NOTED. DE [place] CATH DRAINING URINE TO GRAVITY. SCDS IN PLACE. HOB ELEVATED, BED IN LOWEST POSITION, CALL LIGHT IN REACH. WILL CONTINUE TO MONITOR PT.
[2020-03-21] MEDS: ACETAMINOPHEN 325 MG TABLET PO PRN (20:30)
--- NOTE | 2020-03-21 21:00 | NUR ---
TF RESIDUAL 340 CC RESIDUAL NOTED VIA OGT AT THIS TIME. TF HELD. WILL CONTINUE TO MONITOR.
[2020-03-22] VITALS (25 sets, daily range): BP systolic 87–123
[2020-03-22] MEDS: MEROPENEM 500 MG in NS 50 ML IV SCH ×2 (02:01→13:30)
--- NOTE | 2020-03-22 06:00 | NUR ---
TF RESIDUAL RESIDUAL 50 CC AT THIS TIME. TF RESTARTED. WILL CONTINUE TO MONITOR.
[2020-03-22 06:22] LABS: CALCIUM 7.7 mg/dL (8.4-11.0); CREATININE 2.6 mg/dL (0.55-1.30); POTASSIUM 3.5 mmol/L (3.5-5.1)
--- NOTE | 2020-03-22 07:20 | NUR ---
Received patient and endorsed report from [facility] shift nurse. In no acute distress. Side rails x 3 up.
--- NOTE | 2020-03-22 07:32 | NUR ---
ENDORSEMENT BEDSIDE REPORT GIVEN TO YVONNE LANDON USING SBAR APPROACH.
[2020-03-22] MEDS: METOPROLOL SUCCINATE 25 MG TAB.SR.24H (TOPROL XL) PO SCH ×2 (09:00→20:45)
[2020-03-22] MEDS: BIKTARVY PO SCH (09:00)
[2020-03-22] MEDS: TBO-FILGRASTIM 480 MCG/0.8 ML SYRINGE SUBCUT SCH (09:00)
[2020-03-22] MEDS: ATORVASTATIN 20 MG TABLET PO SCH (09:00)
[2020-03-22] MEDS: BALSAM PERU/CASTOR OIL 60 GM OINT...G. TP SCH (09:00)
[2020-03-22] MEDS: PANTOPRAZOLE SODIUM 40 MG/VIAL (PROTONIX) IVP SCH (09:00)
[2020-03-22 09:07] LABS: HEMATOCRIT 22.9 % (36-54); HEMOGLOBIN 7.9 g/dL (14.0-18.0); MEAN CORPUSCULAR HEMOGLOBIN 30 pg (27-31); MEAN CORPUSCULAR HGB CONC 34 % (32-36); MEAN CORPUSCULAR VOLUME 88 fL (79.0-98.0); RED CELL DISTRIBUTION WIDTH 15.7 % (9.0-15.0); WHITE BLOOD COUNT (AUTO) 2.2 K/uL (4.8-10.8)
[2020-03-22 09:15] LABS: PLATELET COUNT (AUTO) 22 K/uL (130-430)
[2020-03-22 09:43] LABS: ATYPICAL LYMPHOCYTES % 0 % (0-0); BAND % (MANUAL) 20 % (0-6); BASOPHILS % (MANUAL) 0 % (0-2); EOSINOPHILS % (MANUAL) 0 % (0-7); LYMPHOCYTES % (MANUAL) 16 % (20-46); MONOCYTES % (MANUAL) 1 % (0-11)
[2020-03-22] MEDS: ACETAMINOPHEN 325 MG TABLET PO PRN (11:44)
--- NOTE | 2020-03-22 12:00 | NUR ---
Due to high residual, tube feeding on hold.
[2020-03-22] MEDS: D5/0.45 NS 1,000 ML IV SCH (13:19)
--- NOTE | 2020-03-22 17:30 | NUR ---
Talked to son Pablo on phone regarding patient and gave report.
--- NOTE | 2020-03-22 19:07 | NUR ---
Nutrition F/U Admitting Diagnosis: Sepsis Medical History Comment: Pt found w/: sepsis, septic shock, HIV, Immunocompromised status, Rule out COVID-19, Severe Anemia, Hyperlipidemia, HTN, Acidosis per MD notes. Per MD Consult notes: HIV/AIDS, Kaposi Sarcoma, Multiple Skin Lesions. *COVID-19 PCR Not detected 03/10 and 03/12 03/21 CXR: increased bilateral infiltrates and increased left pleural effusion. Subjective Information: Pt remains in ICU and RD visit was deferred d/t lack of PPE. Pt is intubated and is s/p Dwight catheter placement on 03/20 and dialysis on 03/21. Per EMR review, pt is having high residuals on current TF regimen, 340ml yesterday and 260ml today. TF was stopped and restarted. Pt's primary RN was busy with an isolation pt so RD s/w laser cutter who reports pt is doing fine and tolerating current formula, no residuals at this time. pt may benefit from a change in formula, consider Vital 1.2 if residuals remain high. Start at 30ml/hr and slowly advance 5-10ml Q12hr to Vital 1.2 at 45ml/hr (goal) to provide 1296 calories, 81g of protein, and 876ml of total fluids, which meets 73% of calorie and 70% of lower end of protein estimated nutrition needs. Noted abd distended, bs hypoactive, last BM 03/22. Pt w/ +3 pitting edema to the BUE and BLE. Current Diet Order/Nutrition Support: Nepro at 30ml/hr FWF 200ml Q4H via OGT. Pertinent Medications Protonix, Lipitor,Granix Pertinent Labs 03/22: Na 138 WNL, K 3.5 WNL, BG 99 H WNL, BUN 71 H, CRE 2.6 H, WBC 2.2 L Skin Integrity Comment: Marcellus scale: 11. Per Bar Catcher note 03/13: Wound (possibly cancerous) S/P biopsy: Anterior Nose/Right cheek. Current % PO N/A - currently on EN support NEW Estimated Energy Expenditure (kcals/day) (Temperature 36.8 degrees Celsius; Ve: 8.8) 1772 kcal/day (PSU for critical illness on vent) NEW Estimated Protein Required (g/day) 117-158 gm/day (1.5-2 gm/kg CBW for Renal Dz on dialysis, sepsis and wound healing) NEW Estimated Fluid Required (l/day) per MD (Renal Dz) Problem/Etiology/Signs/Symptoms Increased nutrient needs r/t metabolic demands AEB estimated calories and protein for sepsis. (*Ongoing) Inadequate protein-energy intake r/t poor appetite AEB PO intake meeting <50% of estimated nutritional needs. (*no longer applicable, on EN support) Altered nutrition-related labs r/t renal dysfunction AEB elevated BUN and SCre lab values and new Renal Disease. (*ongoing) Inadequate EN intake r/t current infusion rate via NGT AEB EN intake meeting <70% of estimated needs. (*new 03/20) Expected Outcomes/Goals Monitor tolerance and intake of EN support w/ goal of pt meeting at least 75% of estimated nutritional needs, labs trending WNL, normal GI function, skin integrity/wt maintenance. Dietitian Recommendations *Consider Vital 1.2 at 45ml/hr (goal), Free Water Flush per MD via OGT *Provides: 1296 calories, 81g of protein, and 876ml of total fluids *Meet 73% of calorie and 70% of lower end of protein estimated nutrition needs Follow Up High Risk: F/U in 2-3days
--- NOTE | 2020-03-22 19:15 | NUR ---
change of shift.pt.presents isolation status;reverse.pt.presents hx;hiv+;sarcoma karposi scabs extant distribution diffuse. pt.presents ogt/eet;pt.presents og-tube feed;HOLD;elevated residuals.pt.presents picc line;location;rt.arm.pt.presents iv fluids infusing. eet-tube to vent.pt.presents contreras cath;pt.presents hx;renal failure;urine output;anuric.ecteric hue.pt.presents restraints;wrist;bilateral:in place.call light/telephone placed w/in reach of the pt.
--- NOTE | 2020-03-22 19:20 | NUR ---
Dietitian Recommendations *Consider Vital 1.2 at 45ml/hr (goal), Free Water Flush per MD via OGT *Provides: 1296 calories, 81g of protein, and 876ml of total fluids *Meet 73% of calorie and 70% of lower end of protein estimated nutrition needs Please see Nutrition F/U for further details. LT, RD
--- NOTE | 2020-03-22 19:20 | NUR ---
Endorsed patient and gave report to NOC shift nurse. In no acute distress. Side rails x 3 up.
--- NOTE | 2020-03-22 20:00 | NUR ---
pt.assessed.v/s assessed;values w/in normal limits.restraints in place;skin/circulation w/in normal limits.pt.assessed for cleanliness.pt.repositioned.picc line intact;patent iv fluids infusing.ett/ogt intact;patent.og-tube feed;residuals;present elevated residual amount;maintain og-tube feed holed;contreras cath intact;patent:urine content scant;anuric.ecteric hue. call light/telephone placed w/in reach of the pt. Addendum: 03/22/20 at 2230 by Maurice Allen RN i have attended to the oral/care suctioning. Addendum: 03/23/20 at 0035 by Maurice Allen RN per flacc pain mgx;pt absent facial grimaces/body posturing. Addendum: 03/23/20 at 0242 by Maurice Allen RN og-tube feed residual assessed;elevated ml amount.og -tube feed to remain hold.
[2020-03-22] MEDS: methylPREDNISolone SOD SUCC 40 MG/ML VIAL IVP SCH (20:49)
--- NOTE | 2020-03-22 21:00 | NUR ---
2100pmedication;solumedrol administered via the picc line.absent resistance.
--- NOTE | 2020-03-22 22:00 | NUR ---
pt.assessed.v/s assessed:values w/in normal limits.ett/ogt intact;patent.pt.assessed for cleanliness.pt.repositioned.picc line intact;patent iv fluids infusing.og-tube feed hold;contreras cath intact;patent urine output;anuric;ecteric hue.restraints;wrist bilateral in place;skin/circulation w/in normal limits.pt.tolerating vent settings;i have attended to the oral care/ suctioning. call light/telephone placed w/in reach of the pt. Addendum: 03/23/20 at 0035 by Maurice Allen RN per flacc pain mgx;pt absent facial grimaces/body posturing.
[2020-03-23] VITALS (30 sets, daily range): BP systolic 80–123
--- NOTE | 2020-03-23 | NUR ---
pt.assessed.v/s assessed;values w/in normal limits.eet/og tube intact;patent.i have attended to the oral care/suctioning. picc line intact;patent iv fluids infusing.contreras cath intact;patent urine content present.i have assessed the blood glucose;value;104mg/dl. restraints;wrist;bilateral in place;skin/circulation wnl.per flacc pain mgx;pt.absent facial grimaces/body posturing.call light/ telephone placed w/in reach of the pt. Addendum: 03/23/20 at 0241 by Maurice Allen RN og tube residuaL ASSESsES;ELEVATED ML AMOUNT;OG-TUBE FeED TO ReMaIN HOLD.
[2020-03-23] MEDS: D5/0.45 NS 1,000 ML IV SCH ×2 (01:50→18:46)
[2020-03-23] MEDS: MEROPENEM 500 MG in NS 50 ML IV SCH ×2 (01:50→12:47)
--- NOTE | 2020-03-23 02:00 | NUR ---
pt.assessed.v/s assessed.values w/in normal limits.ett/og tube intact;patent.i have attended to the oral care/suctioning.picc line intact;patent iv fluids infusing.contreras cath intact;patent urine content present.pt.assessed for cleanliness.pt.repositioned.per flacc pain mgx pt.absent facial grimaces/body posturing.general status stable.respiratory status stable.restraints in place;skin/circulation assessed wnl.call light/telephone placed w/in reach of the pt. Addendum: 03/23/20 at 0240 by Maurice Allen RN og-tube feed residual assessed;elevated ml amount.og-tube feed;remain hold.
--- NOTE | 2020-03-23 04:00 | NUR ---
pt.assessed.v/s assessed;VAlUES W/IN normal limits..ett/ogt intact;patent.i have attended to the oral care/suction.ogt feed residual;assessed;elevated;ogt feed;remain hold.picc line intact;patent iv fluids;infusing.contreras cath intact;patent urine content present. pt.assessed for cleanliness.pt.repositioned.restraints;wrist;bilateral in place;skin/circulation wnl.general status stable.respiratory status stable;call light/telephone placed w/in reach of the pt.
--- NOTE | 2020-03-23 06:30 | NUR ---
pt.assessed.v/s assessed;values wnl.blood glucose assessed;value;135mg/dl.i have assessed the og-tube feed;RESUDIAL ReMaINS ELEVATED. pt.cleaned.pt.repositioned.i have attended to the oral care/suctioning.i have weighed the pt.2/t hemo-dialysis status.call light placed w/in reach of the pt.
[2020-03-23 06:32] LABS: BASOPHILS % (AUTO) 0.2 % (0.0-2.0); EOSINOPHILS % (AUTO) 0.1 % (0.0-4.0); HEMATOCRIT 26.8 % (36-54); HEMOGLOBIN 9.2 g/dL (14.0-18.0); LYMPHOCYTES # (AUTO) 0.5 K/uL (1.0-5.5); LYMPHOCYTES % (AUTO) 10.8 % (20.5-51.5); MEAN CORPUSCULAR HEMOGLOBIN 30 pg (27-31); MEAN CORPUSCULAR HGB CONC 34 % (32-36); MEAN CORPUSCULAR VOLUME 88 fL (79.0-98.0); MONOCYTES % (AUTO) 0.6 % (1.7-9.3); NEUTROPHILS # (AUTO) 4.4 K/uL (1.8-7.7); NEUTROPHILS % (AUTO) 88.3 % (40.0-70.0); RED BLOOD CELL COUNT(AUTO) 3.05 MIL/uL (4.2-6.2); RED CELL DISTRIBUTION WIDTH 15.6 % (9.0-15.0)
[2020-03-23 06:58] LABS: ALBUMIN 1.2 g/dL (3.4-4.8); CALCIUM 7.6 mg/dL (8.4-11.0); CREATININE 3.48 mg/dL (0.55-1.30); POTASSIUM 3.6 mmol/L (3.5-5.1)
--- NOTE | 2020-03-23 07:30 | NUR ---
OPENING NOTE Patient resting in the bed. No acute distress. ET tube intact to vent AC=18, DQ=378, FIo2=45%, PEEP=5. HOB elevated. Oral Gt intact, no feeding at this time. Skin warm to touch. PICC line intact to TANIA, no redness, no swelling, no drainage. Covered with clean and dry dressing. On D5 1/2 NS at 75ml/hr, infusing well. F/C intact, drain gravity. On isolation. Safety measure maintained. Call light within reached. Bed locked in low position, side rails up. Will continue to monitor.
[2020-03-23 08:29] LABS: TOTAL BILIRUBIN 18.2 mg/dL (0.0-1.0)
--- NOTE | 2020-03-23 08:35 | NUR ---
TOTAL BILIRUBIN=18.2 Called Charley Rivera (induction heat treater for Dr. Hawkins) and waited to call back.
[2020-03-23] MEDS: methylPREDNISolone SOD SUCC 40 MG/ML VIAL IVP SCH ×2 (08:46→20:50)
[2020-03-23] MEDS: PANTOPRAZOLE SODIUM 40 MG/VIAL (PROTONIX) IVP SCH (08:46)
[2020-03-23] MEDS: METOPROLOL SUCCINATE 25 MG TAB.SR.24H (TOPROL XL) PO SCH (08:47)
[2020-03-23] MEDS: BIKTARVY PO SCH (08:48)
[2020-03-23] MEDS: ATORVASTATIN 20 MG TABLET PO SCH (08:48)
[2020-03-23] MEDS: TBO-FILGRASTIM 480 MCG/0.8 ML SYRINGE SUBCUT SCH (08:54)
[2020-03-23] MEDS: BALSAM PERU/CASTOR OIL 60 GM OINT...G. TP SCH (08:55)
--- NOTE | 2020-03-23 10:05 | NUR ---
SEEN AND EXAMINED BY FLOYD GRUBBS.
--- NOTE | 2020-03-23 11:05 | NUR ---
CHG BATH DONE Patient resting in the bed. CHG bath done, procedure tolerated well. No acute distress. ET tube intact to vent. HOB elevated. Bilateral soft restraint in placed, pulse present. F/C intact, drain gravity. Isolation maintained. Call light within reached. Bed locked in low position, side rails up, bed alarm on. SCD in placed. Continue to monitor.
--- NOTE | 2020-03-23 11:47 | NUR ---
TOTAL BILIRUBIN =18.2 Called and received the chiqui back from Aretha Lopez (floorperson for Dr. Tapia). Reported the patient's Total Bilirubin=18.2 with no new order.
--- NOTE | 2020-03-23 12:47 | NUR ---
PT=560 No insulin needed per sliding scale. Patient resting in the bed. No acute distress. ET tube intact to vent. HOB elevated. Safety measure maintained. Call light within reached. Bed locked in low position, side rails up. Isolation maintained. F/C intact, drain gravity. Continue to monitor.
[2020-03-23 14:23] LABS: PLATELET COUNT (AUTO) 31 K/uL (130-430)
--- NOTE | 2020-03-23 14:34 | NUR ---
SEEN BY DR. WEINER PENDING SALE TO [facility].
--- NOTE | 2020-03-23 16:14 | NUR ---
REPORTED ZANA BATES REGARDING THE PATIENT DECREASE BP. THE PATIENT TOOK METOPROLOL SUCCINATE THIS MORNING AND THE PATIENT WILL HAVE HEMODIALYSIS TODAY. DR. WEINER WITH ORDER TO D/C METOPROLOL SUCCINATE.
--- NOTE | 2020-03-23 17:20 | NUR ---
SEEN BY OPAL CAMARILLO.
--- NOTE | 2020-03-23 18:40 | NUR ---
CLOSING NOTE Patient resting in the bed. No acute distress. ET tube intact to vent AC=18, JC=302, FIo2=45%, PEEP=5. HOB elevated. Oral Gt intact, no feeding at this time. Skin warm to touch. PICC line intact to TANIA, no redness, no swelling, no drainage. Covered with clean and dry dressing. On D5 1/2 NS at 75ml/hr, infusing well. LIJ Dwight cath intct, no bleeding noted. F/C intact, drain gravity. Isolation maintained. Safety measure maintained. Call light within reached. Bed locked in low position, side rails up. Will endorse to night nurse.
--- NOTE | 2020-03-23 19:15 | NUR ---
Opening Note Received report from AM nurse using SBAR approach.
--- NOTE | 2020-03-23 20:30 | NUR ---
Dialysis Patient is receiving dialysis right now. No signs or distress noted. Will continue to monitor.
--- NOTE | 2020-03-23 20:45 | NUR ---
Family Patient's daughter, Stacy, called asking for update. Provided update to Stacy. No other questions asked.
--- NOTE | 2020-03-23 20:50 | NUR ---
PM Assessment Patient resting in the bed. No acute distress. Patient is on a mechanical Ventilator. Settings are AC=18, QN=706, FIo2=45%, PEEP=5. HOB elevated. Oral Gt intact, no feeding at this time. Patient has a Right Upper Arm PICC line running D5 1/5 NS @ 75 ml/hr infusing well. No redness, no swelling, no drainage. Covered with clean and dry dressing. Pelayo Catheter is intact, drain to gravity. On isolation. Safety measure maintained. Call light within reached. Bed locked in low position, side rails up. Will continue to monitor.
[2020-03-23] MEDS: MORPHINE 2 MG/ML INJ. SYRINGE IVP PRN (20:51)
--- NOTE | 2020-03-23 21:40 | NUR ---
Dialysis Dialysis took out 1 L. Patient's blood pressure is 79/48.
--- NOTE | 2020-03-23 22:51 | NUR ---
PAGED DR. RIVERS FOR ORDERS DIALED: [phone] SPOKE TO: WRAPPER STITCHER
--- NOTE | 2020-03-23 23:00 | NUR ---
Bolus Patient's blood pressure is 71/40. Gave patient 1 bolus of NS 1L. Addendum: 03/24/20 at 0326 by Ethel Ernst RN wrong time. [id number]
[2020-03-24] VITALS (30 sets, daily range): BP systolic 75–137
[2020-03-24] MEDS ORDERED: ALBUMIN HUMAN 25% 100 ML IV ONE ×2 (00:15→00:30)
--- NOTE | 2020-03-24 00:15 | NUR ---
MD called Called Dr. Vo and let her know patient's condition regarding the blood pressure. New Orders received.
[2020-03-24] MEDS ORDERED: ALBUMIN HUMAN 25% 200 ML IV ONE (00:37)
[2020-03-24] MEDS: MEROPENEM 500 MG in NS 50 ML IV SCH ×2 (00:50→12:01)
[2020-03-24] MEDS ORDERED: NOREPINEPHRINE 4 MG/4 ML VIAL IV ONE ×2 (02:13)
--- NOTE | 2020-03-24 02:35 | NUR ---
Levo started Per MD's orders, keep patient's systolic BP >90. Started patient on levophed. Will continue to monitor.
--- NOTE | 2020-03-24 02:50 | NUR ---
Levo increased to 4mcg/min. Patient's blood pressure is 101/51 with a MAP of 69. Will continue to monitor.
--- NOTE | 2020-03-24 03:21 | NUR ---
called Called Dr. Vo and let her know patient's condition regarding the blood pressure. New Orders received. Addendum: 03/24/20 at 0328 by Ethel Ernst RN wrong time
[2020-03-24] MEDS: D5/0.45 NS 1,000 ML IV SCH (05:17)
[2020-03-24 06:42] LABS: BASOPHILS % (AUTO) 0.1 % (0.0-2.0); EOSINOPHILS % (AUTO) 0.1 % (0.0-4.0); HEMATOCRIT 24.5 % (36-54); HEMOGLOBIN 8.4 g/dL (14.0-18.0); LYMPHOCYTES # (AUTO) 0.4 K/uL (1.0-5.5); MEAN CORPUSCULAR HEMOGLOBIN 30 pg (27-31); MEAN CORPUSCULAR HGB CONC 34 % (32-36); MEAN CORPUSCULAR VOLUME 88 fL (79.0-98.0); MONOCYTES % (AUTO) 0.3 % (1.7-9.3); NEUTROPHILS # (AUTO) 9.8 K/uL (1.8-7.7); NEUTROPHILS % (AUTO) 95.5 % (40.0-70.0); RED BLOOD CELL COUNT(AUTO) 2.78 MIL/uL (4.2-6.2); RED CELL DISTRIBUTION WIDTH 15.9 % (9.0-15.0); WHITE BLOOD COUNT (AUTO) 10.3 K/uL (4.8-10.8)
[2020-03-24 07:01] LABS: PLATELET COUNT (AUTO) 37 K/uL (130-430)
[2020-03-24 07:11] LABS: ALBUMIN 1.4 g/dL (3.4-4.8); CALCIUM 7.3 mg/dL (8.4-11.0); CREATININE 3.1 mg/dL (0.55-1.30); POTASSIUM 3.4 mmol/L (3.5-5.1)
--- NOTE | 2020-03-24 07:20 | NUR ---
Opening Notes Patient received in bed connected to property assessment monitor with settings AC 18, tidal volume 450, FiO2 45%, and PEEP 5 breathing evenly and unlabored. Patient in no signs of distress at this time. Patient has a TANIA PICC receiving levophed at 4 mcg/min. Patient also has a LIJ for dialysis. Patient with OGT in place clamped at this time. Patient has a contreras catheter draining jina urine. Safety and isolation precautions enforced.
--- NOTE | 2020-03-24 07:21 | NUR ---
Closing Note Endorsed report to AM nurse using SBAR approach.
[2020-03-24 07:30] LABS: TOTAL BILIRUBIN 19.5 mg/dL (0.0-1.0)
[2020-03-24] MEDS: ATORVASTATIN 20 MG TABLET PO SCH (08:44)
[2020-03-24] MEDS: PANTOPRAZOLE SODIUM 40 MG/VIAL (PROTONIX) IVP SCH (08:44)
[2020-03-24] MEDS: methylPREDNISolone SOD SUCC 40 MG/ML VIAL IVP SCH ×2 (08:44→21:52)
[2020-03-24] MEDS: BIKTARVY PO SCH (08:44)
[2020-03-24] MEDS: BALSAM PERU/CASTOR OIL 60 GM OINT...G. TP SCH (09:18)
--- NOTE | 2020-03-24 09:30 | NUR ---
Tubefeeding Tubefeeding resumed. Residual 20 ml/hr. Dr. Smith aware.
[2020-03-24] MEDS: TBO-FILGRASTIM 480 MCG/0.8 ML SYRINGE SUBCUT SCH (11:06)
--- NOTE | 2020-03-24 12:00 | NUR ---
RN Rounds Patient resting at this time with no signs of distress noted. Patient able to open eyes but is lethargic. Safety and isolation precautions enforced.
--- NOTE | 2020-03-24 13:10 | NUR ---
MD Rounds Dr. Terry at bedside. No new orders received.
--- NOTE | 2020-03-24 16:00 | NUR ---
CHG CHG bath performed and linens changed. Patient Patient tolerated well. No signs of distress noted.
--- NOTE | 2020-03-24 16:15 | NUR ---
Wound Care Performed wound care as ordered. Patient given pain medication before wound care. Patient tolerated well. No signs of distress noted.
[2020-03-24] MEDS: MORPHINE 2 MG/ML INJ. SYRINGE IVP PRN (16:30)
[2020-03-24] MEDS: NOREPINEPHRINE BITARTRATE 4 MG in NS 246 ML IV PRN (18:22)
--- NOTE | 2020-03-24 19:25 | NUR ---
Opening Note Received report from AM nurse using SBAR approach.
--- NOTE | 2020-03-24 19:38 | NUR ---
Closing Notes Endorsed to machinist 2nd shift RN using SBAR format. Patient in no signs of distress.
--- NOTE | 2020-03-24 21:00 | NUR ---
PM Assessment Patient resting in the bed. No acute distress. Patient is on a mechanical Ventilator. Settings are AC=18, FV=046, FIo2=45%, PEEP=5. HOB elevated. Tubefeeding Nepro @ 30. Patient has a Right Upper Arm PICC line. IV fluids discontinued because tubefeeding is intiated. Pelayo Catheter is intact, drain to gravity. On neutropenic isolation. Safety measure maintained. Call light within reached. Bed locked in low position, side rails up. Will continue to monitor.
[2020-03-25] VITALS (36 sets, daily range): BP systolic 90–148
[2020-03-25] MEDS: MEROPENEM 500 MG in NS 50 ML IV SCH (01:03)
[2020-03-25] MEDS: MORPHINE 2 MG/ML INJ. SYRINGE IVP PRN ×2 (01:41→04:51)
[2020-03-25] MEDS ORDERED: MEROPENEM 500 MG VIAL IV ONE (02:42)
[2020-03-25 06:40] LABS: BASOPHILS % (AUTO) 0.3 % (0.0-2.0); EOSINOPHILS % (AUTO) 0.2 % (0.0-4.0); HEMOGLOBIN 8.1 g/dL (14.0-18.0); LYMPHOCYTES # (AUTO) 0.3 K/uL (1.0-5.5); LYMPHOCYTES % (AUTO) 3.5 % (20.5-51.5); MEAN CORPUSCULAR HEMOGLOBIN 31 pg (27-31); MEAN CORPUSCULAR HGB CONC 35 % (32-36); MEAN CORPUSCULAR VOLUME 89 fL (79.0-98.0); MONOCYTES % (AUTO) 0.5 % (1.7-9.3); NEUTROPHILS % (AUTO) 95.5 % (40.0-70.0); PLATELET COUNT (AUTO) 67 K/uL (130-430); RED BLOOD CELL COUNT(AUTO) 2.59 MIL/uL (4.2-6.2); RED CELL DISTRIBUTION WIDTH 16.1 % (9.0-15.0); WHITE BLOOD COUNT (AUTO) 9.4 K/uL (4.8-10.8)
--- NOTE | 2020-03-25 07:09 | NUR ---
Closing Note Endorsed report to AM nurse using SBAR approach.
[2020-03-25 07:15] LABS: ALBUMIN 1.3 g/dL (3.4-4.8); CREATININE 3.72 mg/dL (0.55-1.30); POTASSIUM 4.3 mmol/L (3.5-5.1)
[2020-03-25 07:28] LABS: CALCIUM 6.8 mg/dL (8.4-11.0)
[2020-03-25 07:29] LABS: TOTAL BILIRUBIN 21.5 mg/dL (0.0-1.0)
--- NOTE | 2020-03-25 07:30 | NUR ---
Opening Note Received plan of care via sbar from endorsing DIPESH Nicolas.
[2020-03-25] MEDS: ATORVASTATIN 20 MG TABLET PO SCH (09:28)
[2020-03-25] MEDS: BIKTARVY PO SCH (09:28)
[2020-03-25] MEDS: methylPREDNISolone SOD SUCC 40 MG/ML VIAL IVP SCH ×2 (09:28→21:05)
[2020-03-25] MEDS: BALSAM PERU/CASTOR OIL 60 GM OINT...G. TP SCH (09:28)
[2020-03-25] MEDS: PANTOPRAZOLE SODIUM 40 MG/VIAL (PROTONIX) IVP SCH (09:28)
[2020-03-25] MEDS: TBO-FILGRASTIM 480 MCG/0.8 ML SYRINGE SUBCUT SCH (10:01)
[2020-03-25] MEDS: NOREPINEPHRINE BITARTRATE 4 MG in NS 246 ML IV PRN (13:35)
--- NOTE | 2020-03-25 13:45 | NUR ---
Nutrition F/U Admitting Diagnosis: Sepsis Medical History Comment: Pt found w/: sepsis, septic shock, HIV, Immunocompromised status, Rule out COVID-19, Severe Anemia, Hyperlipidemia, HTN, Acidosis per MD notes. Per MD Consult notes: HIV/AIDS, Kaposi Sarcoma, Multiple Skin Lesions. *COVID-19 PCR Not detected 03/10 and 03/12 03/21 CXR: increased bilateral infiltrates and increased left pleural effusion. Subjective Information: Pt remains in ICU and RD visit was deferred d/t lack of PPE. Per MD notes, BP is stable, jaundiced and cardiac status is stable. Nephro reported that pt had dialysis on 03/23. Per EMR review, noted significant decrease in amount of residuals recorded. Current EN regimen remains inadequate. PEG placement is warranted to better meet estimated nutritional needs. Current Diet Order/Nutrition Support: Nepro at 30ml/hr FWF 200ml Q4H via OGT. x8 days Provides: 1296 kcal, 58gm protein and 1723ml fluids daily. Meets: 65% of estimated calorie needs and 50% of lower end of estimated protein needs. Pertinent Medications:Protonix, Lipitor,Granix, Solu-medrol, Insulin Pertinent Labs 03/25: Na 136 WNL, K 4.3 WNL, BG 129 H, BUN 96 H, CRE 3.72 H, WBC 9.4 L Skin Integrity Comment: Marcellus scale: 12. Per Wool Washer note 03/13: Wound (possibly cancerous) S/P biopsy: Anterior Nose/Right cheek. Per RN notes, 3+ pitting edema to Bilateral leg and BUE. Current % PO N/A - currently on EN support NEW Estimated Energy Expenditure (kcals/day) (Temperature 37 degrees Celsius; Ve: 12.1) 2004 kcal/day (PSU 2002b for critical illness on vent) Estimated Protein Required (g/day) 117-158 gm/day (1.5-2 gm/kg CBW for Renal Dz on dialysis, sepsis and wound healing) Estimated Fluid Required (l/day) per MD (Renal Dz) Problem/Etiology/Signs/Symptoms Increased nutrient needs r/t metabolic demands AEB estimated calories and protein for sepsis. (*Ongoing) Inadequate protein-energy intake r/t poor appetite AEB PO intake meeting <50% of estimated nutritional needs. (*no longer applicable) Altered nutrition-related labs r/t renal dysfunction AEB elevated BUN and SCre lab values and new Renal Disease. (*ongoing) Inadequate EN intake r/t current infusion rate via NGT AEB EN intake meeting <70% of estimated needs. (*ongoing) Expected Outcomes/Goals Monitor tolerance and intake of EN support w/ goal of pt meeting at least 80% of estimated nutritional needs, labs trending WNL, normal GI function, skin integrity/wt maintenance. Dietitian Recommendations *Continue: Nepro at 30ml/hr, FWF 200ml Q4H via OGT Provides: 1296 kcal, 58gm protein and 1723ml free water daily. Meets: 65% of estimated calorie needs and 50% of lower end of estimated protein needs. *Recommend PEG placement to better meet estimated nutritional needs. Follow Up High Risk: F/U in 2-3days
[2020-03-25] MEDS ORDERED: NOREPINEPHRINE 4 MG/4 ML VIAL IV ONE (13:52)
--- NOTE | 2020-03-25 13:55 | NUR ---
Dietitian Recommendations *Continue: Nepro at 30ml/hr, FWF 200ml Q4H via OGT Provides: 1296 kcal, 58gm protein and 1723ml free water daily. Meets: 65% of estimated calorie needs and 50% of lower end of estimated protein needs. *Recommend PEG placement to better meet estimated nutritional needs. Please see Nutrition F/U note for details. JARAD, RD
[2020-03-25] MEDS: MIDAZOLAM HCL IN 0.9 % NACL/PF 50 ML IV PRN (17:12)
--- NOTE | 2020-03-25 19:30 | NUR ---
Assumed care of patient.
[2020-03-25] MEDS: metroNIDAZOLE 500 mg/NS 100 ML IV SCH (21:05)
[2020-03-25] MEDS: CEFEPIME 0.5 GM in D5W 50 ML IV SCH (22:24)
[2020-03-26] VITALS (36 sets, daily range): BP systolic 84–110
--- NOTE | 2020-03-26 03:32 | NUR ---
Closing Note Provided plan of care via sbar to receiving RN Kev.
[2020-03-26] MEDS: MIDAZOLAM HCL IN 0.9 % NACL/PF 50 ML IV PRN ×3 (06:02→22:17)
[2020-03-26 06:31] LABS: BASOPHILS % (AUTO) 0.4 % (0.0-2.0); EOSINOPHILS % (AUTO) 0.3 % (0.0-4.0); HEMATOCRIT 22.3 % (36-54); HEMOGLOBIN 7.7 g/dL (14.0-18.0); LYMPHOCYTES # (AUTO) 0.2 K/uL (1.0-5.5); LYMPHOCYTES % (AUTO) 3.8 % (20.5-51.5); MEAN CORPUSCULAR HEMOGLOBIN 30 pg (27-31); MEAN CORPUSCULAR HGB CONC 35 % (32-36); MEAN CORPUSCULAR VOLUME 88 fL (79.0-98.0); MONOCYTES % (AUTO) 0.4 % (1.7-9.3); NEUTROPHILS # (AUTO) 4.6 K/uL (1.8-7.7); NEUTROPHILS % (AUTO) 95.1 % (40.0-70.0); RED BLOOD CELL COUNT(AUTO) 2.55 MIL/uL (4.2-6.2); RED CELL DISTRIBUTION WIDTH 15.8 % (9.0-15.0); WHITE BLOOD COUNT (AUTO) 4.8 K/uL (4.8-10.8)
[2020-03-26 06:44] LABS: ALBUMIN 1.2 g/dL (3.4-4.8); CREATININE 4.43 mg/dL (0.55-1.30); POTASSIUM 4.1 mmol/L (3.5-5.1)
[2020-03-26 07:08] LABS: PLATELET COUNT (AUTO) 34 K/uL (130-430)
--- NOTE | 2020-03-26 08:08 | NUR ---
Received a telephone call from [facility]Computer Tape Librarian reviewed patient's records and [facility] is denying acceptance if patient-they are closed due to saturation at this time.
[2020-03-26] MEDS: metroNIDAZOLE 500 mg/NS 100 ML IV SCH ×2 (09:05→22:16)
[2020-03-26] MEDS: ATORVASTATIN 20 MG TABLET PO SCH (09:06)
[2020-03-26] MEDS: BIKTARVY PO SCH (09:06)
[2020-03-26] MEDS: methylPREDNISolone SOD SUCC 40 MG/ML VIAL IVP SCH ×2 (09:06→22:16)
[2020-03-26] MEDS: PANTOPRAZOLE SODIUM 40 MG/VIAL (PROTONIX) IVP SCH (09:06)
[2020-03-26] MEDS: CEFEPIME 0.5 GM in D5W 50 ML IV SCH ×2 (09:06→22:16)
[2020-03-26] MEDS: BALSAM PERU/CASTOR OIL 60 GM OINT...G. TP SCH (09:07)
[2020-03-26 10:26] LABS: CALCIUM 6.1 mg/dL (8.4-11.0)
[2020-03-26 10:28] LABS: TOTAL BILIRUBIN 22.3 mg/dL (0.0-1.0)
--- NOTE | 2020-03-26 13:45 | NUR ---
RT NOTES- PC MODE DR. MENDOZA PLACED PT ON PC 18, RATE 18, Ti 1.0, PEEP 5, 45%FIO2 AT THIS TIME. DIPESH HADLEY MADE AWARE. PT TOLERATING WELL. WILL CONTINUE MONITORING.
--- NOTE | 2020-03-26 14:06 | NUR ---
Dalia w/Vamsi at [facility]-not beds available-pt is on waiting list for bed
--- NOTE | 2020-03-26 19:30 | NUR ---
PM ASSESSMENT REPORT RECEIVED FROM AM RN. PT RECEIVED IN BED WITH EYES CLOSED, RESPONDING TO TACTILE STIMULATION. PT INTUBATED, VENT SETTINGS: PC 18, RATE 18, FIO2 45%, PEEP 5. TANIA PICC IN PLACE INFUSING NS TKO, VERSED DRIP @ 2 MG/HR, AND LEVOPHED DRIP @ 2 MCG/MIN. LIJ YVAN CATH IN PLACE NOTED FOR DIALYSIS ACCESS. OGT IN PLACE. [place] CATH DRAINING MINIMAL URINE TO GRAVITY. SCDs IN PLACE. HOB ELEVATED, BED IN LOWEST POSITION, CALL LIGHT IN REACH. WILL CONTINUE TO MONITOR PT.
[2020-03-26] MEDS ORDERED: ALBUMIN HUMAN 25% 150 ML IV ONE (19:44)
[2020-03-26] MEDS ORDERED: ALBUMIN HUMAN 25% 100 ML IV ONE ×2 (20:00→21:00)
[2020-03-26] MEDS ORDERED: ALBUMIN HUMAN 25% 50 ML IV ONE (21:18)
--- NOTE | 2020-03-26 22:30 | NUR ---
DIALYSIS DIALYSIS COMPLETED AT THIS TIME. VSS, NO S/S OF ACUTE DISTRESS NOTED. 1.2 LITERS OF FLUID REMOVED. WILL CONTINUE TO MONITOR PT.
[2020-03-27] VITALS (33 sets, daily range): BP systolic 72–163
--- NOTE | 2020-03-27 03:30 | NUR ---
Witnessed Versed drip titrated to 3 mg/hr
--- NOTE | 2020-03-27 03:54 | NUR ---
RN ROUNDS CHG BATH GIVEN AT THIS TIME. PT HAD MODERATE AMOUNT OF PASTE LIKE STOOL. ERICKA CARE DONE AND LINENS CHANGED. PT TOLERATED WELL. WOUND CARE PROVIDED. PICC LINE DRESSING SOILED, CHANGED USING STERILE TECHNIQUE. WILL CONTINUE TO MONITOR PT.
[2020-03-27 06:56] LABS: BASOPHILS % (AUTO) 0.4 % (0.0-2.0); EOSINOPHILS # (AUTO) 0.1 K/uL (0.0-0.4); EOSINOPHILS % (AUTO) 1.1 % (0.0-4.0); HEMATOCRIT 22.7 % (36-54); HEMOGLOBIN 8.1 g/dL (14.0-18.0); LYMPHOCYTES # (AUTO) 0.1 K/uL (1.0-5.5); LYMPHOCYTES % (AUTO) 2.5 % (20.5-51.5); MEAN CORPUSCULAR HEMOGLOBIN 31 pg (27-31); MEAN CORPUSCULAR HGB CONC 36 % (32-36); MEAN CORPUSCULAR VOLUME 87 fL (79.0-98.0); MONOCYTES % (AUTO) 0.4 % (1.7-9.3); NEUTROPHILS # (AUTO) 4.7 K/uL (1.8-7.7); NEUTROPHILS % (AUTO) 95.6 % (40.0-70.0); RED BLOOD CELL COUNT(AUTO) 2.62 MIL/uL (4.2-6.2); RED CELL DISTRIBUTION WIDTH 15.3 % (9.0-15.0); WHITE BLOOD COUNT (AUTO) 4.9 K/uL (4.8-10.8)
--- NOTE | 2020-03-27 07:28 | NUR ---
ENDORSEMENT BEDSIDE REPORT GIVEN TO YVONNE LANDON USING SBAR APPROACH.
[2020-03-27 07:46] LABS: PLATELET COUNT (AUTO) 58 K/uL (130-430)
[2020-03-27 07:53] LABS: ALBUMIN 1.8 g/dL (3.4-4.8); CREATININE 3.62 mg/dL (0.55-1.30); POTASSIUM 4.3 mmol/L (3.5-5.1)
[2020-03-27 08:07] LABS: CALCIUM 6.3 mg/dL (8.4-11.0)
[2020-03-27 08:08] LABS: TOTAL BILIRUBIN 27.9 mg/dL (0.0-1.0)
[2020-03-27] MEDS: metroNIDAZOLE 500 mg/NS 100 ML IV SCH ×2 (10:17→21:15)
[2020-03-27] MEDS: CEFEPIME 0.5 GM in D5W 50 ML IV SCH ×2 (10:18→20:42)
[2020-03-27] MEDS: PANTOPRAZOLE SODIUM 40 MG/VIAL (PROTONIX) IVP SCH (10:18)
[2020-03-27] MEDS: BALSAM PERU/CASTOR OIL 60 GM OINT...G. TP SCH (10:18)
[2020-03-27] MEDS: methylPREDNISolone SOD SUCC 40 MG/ML VIAL IVP SCH ×2 (10:18→21:15)
[2020-03-27] MEDS: ATORVASTATIN 20 MG TABLET PO SCH (10:18)
[2020-03-27] MEDS: BIKTARVY PO SCH (10:18)
--- NOTE | 2020-03-27 11:00 | NUR ---
DR JUAREZ HERE TO SEE PT. HE IS AWARE OF BUN/CR. HE WILL CONTINUE WITH HD TOMORROW.
--- NOTE | 2020-03-27 19:40 | NUR ---
Opening note Received patient after report from dayshift nurse. Off isolation. Vent to ETT; labored breathing and tachypneic RR 45 on Cpap. VSS. Patient responding to moderate stimuli. will continue to monitor
--- NOTE | 2020-03-27 21:00 | NUR ---
Residuals from OGT over 200. Feeding stopped.
--- NOTE | 2020-03-27 23:30 | NUR ---
changed to pressure control as patient using accessory muscles and RR 45. New settings: PC 18, rate 18, FIO2 35%, peep 5+.
[2020-03-28] VITALS (32 sets, daily range): BP systolic 71–132
--- NOTE | 2020-03-28 02:00 | NUR ---
Episodes of low blood pressure SBP 76. Started on levophed at 2 mcg/k/min
--- NOTE | 2020-03-28 04:00 | NUR ---
Morning care provided. HCG bath given. Tube feeding restarted at 50 cc/h
[2020-03-28] MEDS: NOREPINEPHRINE BITARTRATE 4 MG in NS 246 ML IV PRN ×2 (04:43→21:34)
[2020-03-28] MEDS: MIDAZOLAM HCL IN 0.9 % NACL/PF 50 ML IV PRN (04:48)
--- NOTE | 2020-03-28 06:00 | NUR ---
off levophed as patient's systolic blood pressure continue to be over 115. will continue to monitor
[2020-03-28 06:54] LABS: BASOPHILS % (AUTO) 0.2 % (0.0-2.0); EOSINOPHILS % (AUTO) 1.1 % (0.0-4.0); HEMOGLOBIN 7.4 g/dL (14.0-18.0); LYMPHOCYTES # (AUTO) 0.4 K/uL (1.0-5.5); LYMPHOCYTES % (AUTO) 10.5 % (20.5-51.5); MEAN CORPUSCULAR HEMOGLOBIN 30 pg (27-31); MEAN CORPUSCULAR HGB CONC 35 % (32-36); MEAN CORPUSCULAR VOLUME 87 fL (79.0-98.0); MONOCYTES % (AUTO) 0.5 % (1.7-9.3); NEUTROPHILS # (AUTO) 3.2 K/uL (1.8-7.7); NEUTROPHILS % (AUTO) 87.7 % (40.0-70.0); RED BLOOD CELL COUNT(AUTO) 2.43 MIL/uL (4.2-6.2); RED CELL DISTRIBUTION WIDTH 15.6 % (9.0-15.0); WHITE BLOOD COUNT (AUTO) 3.6 K/uL (4.8-10.8)
[2020-03-28 06:58] LABS: HEMATOCRIT 21.2 % (36-54); PLATELET COUNT (AUTO) 35 K/uL (130-430)
[2020-03-28 07:09] LABS: ALBUMIN 1.5 g/dL (3.4-4.8); CREATININE 4.53 mg/dL (0.55-1.30); POTASSIUM 4.7 mmol/L (3.5-5.1)
[2020-03-28 07:59] LABS: TOTAL BILIRUBIN 28.4 mg/dL (0.0-1.0)
[2020-03-28 08:10] LABS: HEPATITIS B SURFACE AG Negative (Negative); HEPATITIS C VIRUS AB <0.1 s/co ratio (0.0-0.9)
[2020-03-28] MEDS: ATORVASTATIN 20 MG TABLET PO SCH (09:00)
[2020-03-28] MEDS: BALSAM PERU/CASTOR OIL 60 GM OINT...G. TP SCH (09:00)
[2020-03-28] MEDS: methylPREDNISolone SOD SUCC 40 MG/ML VIAL IVP SCH ×2 (09:00→21:41)
[2020-03-28] MEDS: CEFEPIME 0.5 GM in D5W 50 ML IV SCH ×2 (09:00→21:40)
[2020-03-28] MEDS: metroNIDAZOLE 500 mg/NS 100 ML IV SCH ×2 (09:00→21:39)
[2020-03-28] MEDS: PANTOPRAZOLE SODIUM 40 MG/VIAL (PROTONIX) IVP SCH (09:00)
[2020-03-28] MEDS: BIKTARVY PO SCH (09:00)
[2020-03-28] MEDS ORDERED: NS 500 ML IV ONE (09:15)
[2020-03-28] MEDS: ALBUMIN HUMAN 25% 50 ML IV SCH ×3 (09:15→21:41)
--- NOTE | 2020-03-28 13:26 | NUR ---
Spoke w/ [facility]-pt is taken off the wait list for a bed-no beds available-no longer able to wait list the patient due to saturation
--- NOTE | 2020-03-28 17:49 | NUR ---
Nutrition F/U Admitting Diagnosis: Sepsis Medical History Comment: Pt found w/: sepsis, septic shock, HIV, Immunocompromised status, Rule out COVID-19, Severe Anemia, Hyperlipidemia, HTN, Acidosis per MD notes. Per MD Consult notes: HIV/AIDS, Kaposi Sarcoma, Multiple Skin Lesions, Severe Protein Malnutrition *COVID-19 PCR Not detected 03/10 and 03/12 03/21 CXR: increased bilateral infiltrates and increased left pleural effusion. Subjective Information: Pt remains in ICU and RD visit was deferred d/t lack of PPE. Per Bed Huddle 03/28, pt failed the CPAP trial and remains on vent, possible candidate for trach or hospice. Pts tube feeding rate was increased to 50ml/hr yesterday per MD order. RN reports pt had 200ml residuals this AM and TF was restarted with only 20ml residuals so far. Will continue to monitor tolerance and residuals. Abd soft, bs+, last BM on 03/27. Current TF regimen meets 108% of calorie and 83% of lower end of protein nutrition needs. Current Diet Order/Nutrition Support: Nepro at 50ml/hr FWF 200ml Q4H via OGT. x1 day Provides: 2160 kcal, 97gm protein and 2072ml fluids daily. Meets: 108% of estimated calorie needs and 83% of lower end of estimated protein needs. Pertinent Medications: Protonix, Lipitor, Granix, Solu-medrol, Insulin Pertinent Labs 03/28: Na 138 WNL, K 4.7 WNL, BUN 110 H, CRE 4.53 H, WBC 3.6 L, POC: 118H, 136H Skin Integrity Comment: Marcellus scale: 12. Per Web Ui Software Engineer note 03/13: Wound (possibly cancerous) S/P biopsy: Anterior Nose/Right cheek. Per RN notes, 3+ pitting edema to Bilateral leg and BUE. NEW Estimated Energy Expenditure (kcals/day) (Temperature 37 degrees Celsius; Ve: 12.1) 2004 kcal/day (PSU for critical illness on vent) Estimated Protein Required (g/day) 117-158 gm/day (1.5-2 gm/kg CBW for Renal Dz on dialysis, sepsis and wound healing) Estimated Fluid Required (l/day) per MD (Renal Dz) Problem/Etiology/Signs/Symptoms Increased nutrient needs r/t metabolic demands AEB estimated calories and protein for sepsis. (*Ongoing) Inadequate protein-energy intake r/t poor appetite AEB PO intake meeting <50% of estimated nutritional needs. (*no longer applicable) Altered nutrition-related labs r/t renal dysfunction AEB elevated BUN and SCre lab values and new Renal Disease. (*ongoing) Inadequate EN intake r/t current infusion rate via NGT AEB EN intake meeting <70% of estimated needs. (*met) Expected Outcomes/Goals Monitor tolerance and intake of EN support w/ goal of pt meeting at least 80% of estimated nutritional needs, labs trending WNL, normal GI function, skin integrity/wt maintenance. Dietitian Recommendations *Continue: Nepro at 50ml/hr, FWF 200ml Q4H via OGT Provides: 2160 kcal, 97gm protein and 2072ml fluids daily. Meets: 108% of estimated calorie needs and 83% of lower end of estimated protein needs. Follow Up High Risk: F/U in 2-3days
--- NOTE | 2020-03-28 17:54 | NUR ---
Dietitian Recommendations *Continue: Nepro at 50ml/hr, FWF 200ml Q4H via OGT Provides: 2160 kcal, 97gm protein and 2072ml fluids daily. Meets: 108% of estimated calorie needs and 83% of lower end of estimated protein needs. Please see Nutrition F/U for further details. LT, RD
--- NOTE | 2020-03-28 18:30 | NUR ---
SPOKE WITH DAUGHTER CYNTHIA. ENCOURAGED DTR TO COME TO VISIT WITH DAD, SINCE HE IS DECLINING QUICKLY. LEVOPHED AT [employer]. SHE WILL BE HERE IN ONE HR.
[2020-03-28] MEDS: METOCLOPRAMIDE HCL 10 MG/2 ML VIAL IVP SCH (18:49)
--- NOTE | 2020-03-28 19:40 | NUR ---
Opening note Report received, assumed care. Salmon precautions in place.Levophed infusing at 14 mcg/min but blood pressure continues to decrease. Requiring close monitoring and titration of vasopressor medication. This nurse was advised during report that family may visit patient for it is not certain that patient will survive through this night. will continue to monitor patient as per unit protocol.
--- NOTE | 2020-03-28 20:10 | NUR ---
Family at bedside; privacy provided. Nurse made self available to family for questions or comments.
[2020-03-29] VITALS (25 sets, daily range): BP systolic 51–92
--- NOTE | 2020-03-29 00:02 | NUR ---
assessment completed. repositioned for comfort.
[2020-03-29] MEDS: NOREPINEPHRINE BITARTRATE 4 MG in NS 246 ML IV PRN ×2 (00:16→05:56)
[2020-03-29] MEDS: METOCLOPRAMIDE HCL 10 MG/2 ML VIAL IVP SCH ×3 (00:26→11:00)
[2020-03-29] MEDS ORDERED: NOREPINEPHRINE 4 MG/4 ML VIAL IV ONE ×3 (00:28→06:03)
[2020-03-29 05:31] LABS: BASOPHILS % (AUTO) 0.2 % (0.0-2.0)
[2020-03-29 05:37] LABS: CREATININE 5.21 mg/dL (0.55-1.30)
[2020-03-29 05:48] LABS: EOSINOPHILS # (AUTO) 0.2 K/uL (0.0-0.4); LYMPHOCYTES # (AUTO) 0.5 K/uL (1.0-5.5); MEAN CORPUSCULAR HEMOGLOBIN 32 pg (27-31); MEAN CORPUSCULAR HGB CONC 33 % (32-36)
[2020-03-29 06:16] LABS: EOSINOPHILS % (AUTO) 1.7 % (0.0-4.0); LYMPHOCYTES % (AUTO) 5.1 % (20.5-51.5); MONOCYTES # (AUTO) 0.1 K/uL (0.0-1.0); MONOCYTES % (AUTO) 0.6 % (1.7-9.3); NEUTROPHILS # (AUTO) 9.6 K/uL (1.8-7.7); NEUTROPHILS % (AUTO) 92.4 % (40.0-70.0); RED BLOOD CELL COUNT(AUTO) 2.01 MIL/uL (4.2-6.2); WHITE BLOOD COUNT (AUTO) 10.4 K/uL (4.8-10.8)
[2020-03-29 06:18] LABS: CALCIUM 5.9 mg/dL (8.4-11.0); POTASSIUM 6.5 mmol/L (3.5-5.1)
[2020-03-29 06:22] LABS: HEMATOCRIT 19.4 % (36-54); HEMOGLOBIN 6.4 g/dL (14.0-18.0); MEAN CORPUSCULAR VOLUME 97 fL (79.0-98.0); PLATELET COUNT (AUTO) 74 K/uL (130-430); RED CELL DISTRIBUTION WIDTH 18.2 % (9.0-15.0)
--- NOTE | 2020-03-29 06:31 | NUR ---
0600 GLUCOSCAN 42 REPEAT 46 D50 1 AMP GIVEN PER PROTOCOL
[2020-03-29] MEDS ORDERED: DEXTROSE 50% JECT 50 ML DISP.SYRIN ONE ×2 (06:34→11:27)
--- NOTE | 2020-03-29 06:55 | NUR ---
BLOOD GLUCOSE POST D50 BS 87 CHECKED 40 MIN AFTER D50
--- NOTE | 2020-03-29 07:30 | NUR ---
Opening Note Received plan of care via sbar from endorsing nurse Krause.
[2020-03-29] MEDS ORDERED: NOREPINEPHRINE BITARTRATE 16 MG in D5W 234 ML IV PRN (08:00)
[2020-03-29] MEDS: CEFEPIME 0.5 GM in D5W 50 ML IV SCH (08:16)
[2020-03-29] MEDS: PANTOPRAZOLE SODIUM 40 MG/VIAL (PROTONIX) IVP SCH (08:16)
[2020-03-29] MEDS: methylPREDNISolone SOD SUCC 40 MG/ML VIAL IVP SCH (08:16)
[2020-03-29] MEDS: ATORVASTATIN 20 MG TABLET PO SCH (08:16)
[2020-03-29] MEDS: BIKTARVY PO SCH (08:17)
[2020-03-29] MEDS: BALSAM PERU/CASTOR OIL 60 GM OINT...G. TP SCH (08:17)
[2020-03-29] MEDS: ALBUMIN HUMAN 25% 50 ML IV SCH ×2 (08:52→13:49)
[2020-03-29] MEDS: metroNIDAZOLE 500 mg/NS 100 ML IV SCH (10:00)
--- NOTE | 2020-03-29 10:59 | NUR ---
PAGED FOR ORDERS DIALED: [phone] SPOKE TO: SONJA
[2020-03-29] MEDS ORDERED: SODIUM BICARBONATE 8.4% JECT 50 MEQ/50 ML SYRINGE IVP ONE (11:15)
[2020-03-29] MEDS ORDERED: DEXTROSE 50% JECT 50 ML DISP.SYRIN IVP ONE (11:15)
[2020-03-29 11:17] LABS: INR 2.9 (0.80-1.20); PROTHROMBIN TIME 29.1 SECS (9.5-12.5)
--- NOTE | 2020-03-29 11:17 | NUR ---
Spoke to Dr. Tapia regarding potassium. Also reported blood sugar of 35. Received orders for a D50 IVP push once and 2 AMP Bi-Carb IVP once.
[2020-03-29] MEDS ORDERED: SODIUM BICARBONATE 8.4% JECT 50 MEQ/50 ML SYRINGE ONE (11:28)
--- NOTE | 2020-03-29 12:13 | NUR ---
Dr. Tapia at bedside. Discussed Potassium and BUN and Creatinine. wants to complete a second CMP and CBC at 1900.
--- NOTE | 2020-03-29 16:58 | NUR ---
Witnessed severe bradycardia on monitor. Checked patient for pulse via auscultation and palpitation and none detected. Second RN verified and Dr. Raymond at bedside to also to verify. Pupils fixed and dialated and no reaction to painful stimuli. Time of called at 1644. Contacted daughter Stacy to inform.
--- NOTE | 2020-03-29 17:20 | NUR ---
NOTIFIED OF PATIENT EXPIRATION SEPMARIA TERESA BANKS [phone] -MARIE JUAREZ -VLADIMIR KELLER -BRII DENTON -SPOKE TO: MARCIA RYAN [phone] -SPOKE TO: STUDENT EDUCATION SPECIALIST -UNABLE TO GET AHOLD OF DR. SYKES STUDENT EDUCATION SPECIALIST STATED HE COULD NOT FIND DR. SYKES ON LIST
== END 2020-03-29 16:44 | disposition expired | DRG 974 ==
LOC: SED 23:07 → STU 03-10 01:54 → EEVIPCON 03-10 01:54 → STU 03-10 02:07 → SIC 03-10 02:35 → STU 03-12 15:55 → SIC 03-15 17:07 → STU 03-19 18:30 → SIC 03-19 19:46
PROVIDERS: ADMIT Internal Medicine Hospice and Palliative Medicine; ATTEND Internal Medicine Hospice and Palliative Medicine
PROC: 0HBHXZX Excision of Right Upper Leg Skin, External Approach, Diagnostic (ICD-10-PCS; 2020-03-11)
PROC: 0BH17EZ Insertion of Endotracheal Airway into Trachea, Via Natural or Artificial Opening (ICD-10-PCS; 2020-03-15)
PROC: 5A1955Z Respiratory Ventilation, Greater than 96 Consecutive Hours (ICD-10-PCS; 2020-03-15)
PROC: 30233R1 Transfusion of Nonautologous Platelets into Peripheral Vein, Percutaneous Approach (ICD-10-PCS; principal; 2020-03-16)
PROC: 30233N1 Transfusion of Nonautologous Red Blood Cells into Peripheral Vein, Percutaneous Approach (ICD-10-PCS; 2020-03-16)
PROC: 5A1D70Z Performance of Urinary Filtration, Intermittent, Less than 6 Hours Per Day (ICD-10-PCS; 2020-03-17)
PROC: 5A1D70Z Performance of Urinary Filtration, Intermittent, Less than 6 Hours Per Day (ICD-10-PCS; 2020-03-19)
PROC: 5A1D70Z Performance of Urinary Filtration, Intermittent, Less than 6 Hours Per Day (ICD-10-PCS; 2020-03-20)
PROC: 02HV33Z Insertion of Infusion Device into Superior Vena Cava, Percutaneous Approach (ICD-10-PCS; 2020-03-20)
PROC: B548ZZA Ultrasonography of Superior Vena Cava, Guidance (ICD-10-PCS; 2020-03-20)
PROC: 5A1D70Z Performance of Urinary Filtration, Intermittent, Less than 6 Hours Per Day (ICD-10-PCS; 2020-03-21)
PROC: 5A1D70Z Performance of Urinary Filtration, Intermittent, Less than 6 Hours Per Day (ICD-10-PCS; 2020-03-23)
PROC: 5A1D70Z Performance of Urinary Filtration, Intermittent, Less than 6 Hours Per Day (ICD-10-PCS; 2020-03-24)
PROC: 5A1D70Z Performance of Urinary Filtration, Intermittent, Less than 6 Hours Per Day (ICD-10-PCS; 2020-03-25)
DX: A41.9 Sepsis, unspecified organism (principal); D66 Hereditary factor VIII deficiency; B20 Human immunodeficiency virus [HIV] disease; E43 Unspecified severe protein-calorie malnutrition; G03.9 Meningitis, unspecified; G04.90 Encephalitis and encephalomyelitis, unspecified; J18.9 Pneumonia, unspecified organism; J96.21 Acute and chronic respiratory failure with hypoxia; N17.0 Acute kidney failure with tubular necrosis; R65.21 Severe sepsis with septic shock; G93.41 Metabolic encephalopathy; C46.9 Kaposi's sarcoma, unspecified; E87.0 Hyperosmolality and hypernatremia; E87.2 Acidosis; R17 Unspecified jaundice; B00.9 Herpesviral infection, unspecified; D69.59 Other secondary thrombocytopenia; D72.820 Lymphocytosis (symptomatic); E78.5 Hyperlipidemia, unspecified; I12.9 Hypertensive chronic kidney disease with stage 1 through stage 4 chronic kidney disease, or unspecified chronic kidney disease; L98.9 Disorder of the skin and subcutaneous tissue, unspecified; N18.9 Chronic kidney disease, unspecified; Z20.828 Contact with and (suspected) exposure to other viral communicable diseases; Z79.899 Other long term (current) drug therapy; Z85.89 Personal history of malignant neoplasm of other organs and systems; Z87.891 Personal history of nicotine dependence; Z91.19 Patient's noncompliance with other medical treatment and regimen; Z68.27 Body mass index [BMI] 27.0-27.9, adult; Z66 Do not resuscitate
CPT/HCPCS: 36415; 36600; 71045; 71250-TC; 76700-TC; 80048; 80053; 80061; 80202-TC; 82140-TC; 82330; 82533; 82550-TC; 82607; 82728; 82746; 82803-TC; 82962; 83010; 83051; 83540-TC; 83550-TC; 83605; 83615-TC; 83735-TC; 83880; 84443-TC; 84478-TC; 84484; 85007; 85014-TC; 85025; 85027; 85044-TC; 85384-TC; 85610-TC; 85730-TC; 86140; 86359; 86360; 86803; 86886; 86900; 86901; 86920; 87040-TC; 87070-TC; 87081; 87205-TC; 87340; 88305; 88341; 88342; 93005; 93306; 94002; 94003; 96365; 96367; 99291; A9577; C1751; C9113; J0133; J0456; J0692; J0696; J1030; J1447; J1644; J1720; J1815; J1940; J2001; J2060; J2185; J2270; J2543; J2765; J3490; J7030; J7040; J7042; J7050; J7060; J7120; P9012; P9021; P9034; P9046; U0003-CS